=== PATIENT | male | born 1930 | race Caucasian/White ===

== ENCOUNTER 2018-11-11 18:48 | Inpatient (IN) ==
[2018-11-11] MEDS ORDERED: Ipratropium/Albuterol Neb 3 ML ONE (18:56)
[2018-11-11] MEDS ORDERED: 0.9 % Sodium Chloride 1,000 ML ONE ×4 (19:00→21:44)
[2018-11-11] MEDS ORDERED: Dexamethasone 4 MG/ML VIAL IVP ONE (19:13)
[2018-11-11] MEDS ORDERED: Piperacillin/Tazobactam 3.375 GM in Water for inj. (sterile) 20 ML 20 ML IVP ONE (19:13)
[2018-11-11] MEDS ORDERED: 0.9 % Sodium Chloride 1,000 ML IVC ONE ×2 (19:13)
[2018-11-11] MEDS ORDERED: *HR* Rocuronium Bromide 50 MG/5 ML VIAL IVP ONE (19:15)
[2018-11-11] MEDS ORDERED: *HR* Etomidate 20 MG/10 ML AMPUL IVP ONE (19:16)
[2018-11-11] MEDS ORDERED: Isovue-370 500 ML BOTTLE IVP ONE ×2 (19:17→22:07)
[2018-11-11 19:20] LABS: ABG Base Excess -2 mEq/L (-2 to 3); ABG HCO3 23 mEq/L (21-27); ABG Oxygen Saturation 94 % (95-98); ABG PCO2 37 mmHg (35-45); ABG PO2 69 mmHg (85-104); ABG TCO2 24 mEq/L (20-26)
[2018-11-11 19:20] LABS: Basophils % 0.2 %; Eosinophils % 0.7 %; Hematocrit 38.4 % (37.5-50.1); Immature Granulocytes % 0.5 % (0-4); Lymphocytes # 0.9 K/mcL (0.6-4.6); Mean Corpuscular HGB Conc 31.3 g/dL (31.6-35.5); Mean Corpuscular Hemoglobin 31.2 pg (28.0-33.3); Mean Corpuscular Volume 99.7 fL (83.0-100.0); Mean Platelet Volume 9.9 fL (9.4-12.4); Monocytes % 0.7 %; Neutrophils # 3.3 K/mcL (1.6-8.9); Platelet Count 223 K/mcL (140-400); Red Blood Count 3.85 M/mcL (4.19-5.50); Red Cell Distribution Width 15.5 % (11.5-14.5); Segmented Neutrophils % 76.9 %
[2018-11-11] MEDS ORDERED: Ipratropium/Albuterol Neb 3 ML IH ONE (19:21)
[2018-11-11 19:22] LABS: INR 1.1; Prothrombin Time 12.3 Seconds (9.4-12.1)
--- NOTE | 2018-11-11 19:23 | Emergency Department Note ---
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, Bladder outlet obstruction Sepsis Qualifiers: Sepsis type: sepsis due to unspecified organism Qualified Code(s): A41.9 - Sepsis, unspecified organism UTI (urinary tract infection) Qualifiers: Urinary tract infection type: site unspecified Hematuria presence: with hematuria Qualified Code(s): N39.0 - Urinary tract infection, site not specified Congestive heart failure Qualifiers: Heart failure type: unspecified Heart failure chronicity: unspecified Qualified Code(s): I50.9 - Heart failure, unspecified Disposition: Admitted As Inpatient Condition: Critical Time of Disposition: 15:02 SOB HPI - General Chief Complaint: ED Shortness of Breath/Dyspnea Stated Complaint: TERRIE Time Seen by Provider: 11/11/18 19:12 Source: patient, family, EMS Mode of arrival: EMS Limitations: altered mental status Nursing Notes Reviewed: Yes Vital Signs Reviewed: Yes - History of Present Illness 88-year-old male presenting from [facility] for severe shortness of breath. Upon presentation patient is found to be in significant respiratory distress, he is panicking with significant effort in his work of breathing, accessory muscle use, he is speaking in 1-2 word sentences and stating "help me." Patient is tachycardic into the 140s. When asked if the patient is currently experiencing chest pains he states "no." Paperwork sent from [facility] notes patient is a DNR Comfort Care arrest. There is no specification regarding patient's wishes for intubation. Resident physician explained to the patient that he may need a breathing tube to help with his respiratory efforts, patient responded with "yeah." When asked by the resident physician to confirm that the patient would condone intubation at this time the patient responds with unintelligible words. Continued medical management in trauma bay by attending physician Dr. Barnard was performed while resident physician attempted to make contact with patient's family. Resident physician contacted patient's daughter by phone who had at this time arrived in the ED waiting room and patient's daughter was informed [id number] of the risks and benefits of intubation at this time including continued medical decompensation of the patient's respiratory status versus the possibility of requiring permanent ventilatory support in order to sustain life. Patient's daughter states that the patient does not wish to have cardiopulmonary resuscitation performed stating "he does not want you to bust up his chest." Patient's daughter states that breathing tube at this time with mechanical ventilation is acceptable and would be in her father's wishes in order to stabilize her father while etiology of his current condition is evaluated. Pt Subjective Complaint: shortness of breath Context: recent illness, trauma/injury Severity: severe Consistency/Duration: gradually worsening Improves with: nothing Worsens with: nothing Known history of: COPD, other (Prostate cancer, recurrent UTI) Treatment prior to arrival: oxygen, bronchodilator Cough present: No - Related Data Home Medications Medication Instructions Recorded Confirmed Divalproex Sodium [Depakote] 250 mg PO BID 11/11/18 11/11/18 Escitalopram [Lexapro] 20 mg PO DAILY 11/11/18 11/11/18 Famotidine [Heartburn Prevention] 20 mg PO HS 11/11/18 11/11/18 Ipratropium/Albuterol Neb [Duoneb] 3 ml IH BID 11/11/18 11/11/18 Ipratropium/Albuterol Neb [Duoneb] 3 ml IH TID PRN 11/11/18 11/11/18 Melatonin 5 mg PO HS 11/11/18 11/11/18 Multivitamin [One Daily 1 each PO DAILY 11/11/18 11/11/18 Multivitamin] Nitrofurantoin [Macrodantin] 50 mg PO DAILY 11/11/18 11/11/18 OLANZapine [Zyprexa] 10 mg PO HS 11/11/18 11/11/18 Ropinirole HCl [Requip] 2 mg PO HS 11/11/18 11/11/18 Tramadol HCl [Ultram] 50 mg PO TID 11/11/18 11/11/18 Trazodone HCl 100 mg PO HS 11/11/18 11/11/18 Allergies Allergy/AdvReac Type Severity Reaction Status Date / Time No Known Allergies Allergy Verified 11/11/18 19:40 Review of Systems: As Per HPI Limitations: ROS unobtainable due to patients medical condition Past Medical History - Past Medical History Source: old records reviewed, obtained from family Medical history: Reports: COPD, dementia, other (Prostate cancer) - Social History Smoking Status: Former smoker Physical Exam Constitutional: Patient is in severe respiratory distress, he is panicking, he is speaking in 1-2 word sentences. Patient's speech is becoming unintelligible. Neuro: no overt focal neurological deficits Head: Swelling and bruising noted to the left parietal area of the patient's skull as well as to bilateral upper extremities. Eyes: Pupils equal, no scleral icterus, Neck: Trachea midline without deviation. Anterior neck is supple without swelling. *Chest: Symmetric chest wall rise *Heart: Rate is tachycardic, heart sounds are difficult to auscultate given the degree of wheezing and rhonchi throughout lung triana. No significant murmurs are detected. *Lungs: Diffuse wheezes and rhonchi throughout bilateral lung triana. Patient with accessory muscle use and prolonged expiratory phase. Patient is severely conversationally dyspneic speaking 1-2 word sentences. Abdomen: Abdomen is flat, soft to palpation, Non-distended, non-rigid, no organomegaly, no ascites appreciated. No pulsatile mass, no tenderness or guarding to palpation in all four quadrants, no rebound Integumentary: Patient appears pale but is nondiaphoretic, noncyanotic. - General Limitations: altered mental status, other (Severe respiratory distress) General appearance: lethargic, in distress Course Course Narrative: Concern for severe respiratory distress. Patient with DNR CC arrest advanced directive. Upon presentation patient appears to be asking for help and initially seems to condone intubation for treatment of his respiratory status. Patient unable to confirm these wishes. Patient's daughter contacted and states the father would desire intubation for prevention of decompensation of his respiratory status will etiology of his condition is evaluated. Patient's daughter states that her father would NOT wish to have cardiopulmonary resuscitation in the event cardiac arrest. Intubation will be performed in trauma bay with mechanical ventilation, DuoNeb therapy Full laboratory analysis including urinalysis, ABG, chest x-ray Head CT Empiric antibiotics, IV fluid - Reevaluation(s) Reevaluation #1: Speaking further with patient's daughter, she states the patient encountered a mechanical fall at his extended care facility on Monday of last week. Extended care facility did not report any loss of consciousness, nausea vomiting, difficulties with ambulation, or any further complications resulting from this event. Patient did not receive medical evaluation after the fall. Vital Signs O2 Sat by Pulse Oximetry 84 11/11/18 18:50 Temperature 97.1 F L 11/12/18 12:25 Pulse Rate 96 11/12/18 14:00 Respiratory Rate 20 11/12/18 14:00 Blood Pressure 159/93 11/12/18 14:00 O2 Sat by Pulse Oximetry 100 11/12/18 14:00 Oxygen Delivery Oxygen Delivery Ventilator Procedures - Intubation Time out performed: No sedative: Etomidate Mg Given: 20 paralytic: Rocuronium Mg Given: 60 Laryngoscope: fiber optic video scope Assist Device Used: fiber optic device ET Tube Size: 7 ET Tube Uncuffed: No Tube Secured Depth (cm): 25 Tube Secured Location: teeth Tube Placement Confirmation: visualized tube passing through cords, equal breath sounds bilaterally, no breath sounds over epigastrium, confirmation by capnometry Patient Tolerated Procedure: well, no complications Intubation Complications: none Shortness of Breath/Dyspnea - MDM Narrative Medical decision making narrative: 1. Patient's initial lactate elevated 8.2 Patient believed to be uroseptic with positive urinalysis for infection Bedside ultrasound shows distended bladder with approximately [address] Galvin from urology contacted for suprapubic catheterization as urethral catheter unable to return significant amount of fluid 2. Patient undergoes CTA chest due to potential concerns for pulmonary embolism. 3. Patient's anatomy is deranged from prostate cancer Urologist states that upon initial attempt of suprapubic catheterization air initially aspirated Suprapubic catheter repositioned with positive urine flow Concern over bowel perforation by 14-gauge needle suprapubic catheterization Patient is on empiric antibiotics with azithromycin, vancomycin and Zosyn We will perform CT scan of the abdomen and pelvis with IV contrast at this time for further evaluation. 4. Patient noted to hospitalist medicine service with ICU admission for further management of patient's condition. Dr. Cris gómez. 5. CTA of the patient's chest reveals incidental findings of multiple acute thoracic vertebral fractures. Hospitalist contacted and informed of these findings. Hospitalist states that he has been made aware and is investigating further. - Lab Data Lab results reviewed: Yes I reviewed the patient's lab results. Result diagrams: 11/12/18 03:25 11/12/18 03:25 Lab Results 11/11/18 11/11/18 11/11/18 Range/Units 18:58 18:58 18:58 WBC 4.3 (4.3-11.1) K/mcL RBC 3.85 L (4.19-5.50) M/mcL Hgb 12.0 L (12.9-16.9) g/dL Hct 38.4 (37.5-50.1) % MCV 99.7 (83.0-100.0) fL MCH 31.2 (28.0-33.3) pg MCHC 31.3 L (31.6-35.5) g/dL RDW 15.5 H (11.5-14.5) % Plt Count 223 (140-400) K/mcL MPV 9.9 (9.4-12.4) fL Immature Gran % 0.5 (0-4) % Seg Neutrophils % 76.9 % Lymphocytes % 21.0 % Monocytes % 0.7 % Eosinophils % 0.7 % Basophils % 0.2 % Neutrophils # 3.3 (1.6-8.9) K/mcL Lymphocytes # 0.9 (0.6-4.6) K/mcL Monocytes # 0.0 (0.0-1.3) K/mcL Eosinophils # 0.0 (0.0-0.6) K/mcL Basophils # 0.0 (0.0-0.2) K/mcL PT 12.3 H (9.4-12.1) Seconds INR 1.1 APTT 25.7 L (26.0-36.0) Seconds ABG pH (7.32-7.45) pH Units ABG pCO2 (35-45) mmHg ABG pO2 (85-104) mmHg ABG HCO3 (21-27) mEq/L ABG Total CO2 (20-26) mEq/L ABG O2 Saturation (95-98) % ABG Base Excess (-2 to 3) mEq/L O2 Delivery Device Inspired O2 (1-15=lpm [id number]=%) Sodium 138 (136-145) mEq/L Potassium 5.0 (3.5-5.1) mEq/L Chloride 97 L (98-107) mEq/L Carbon Dioxide 23 (23-29) mEq/L BUN 19 (8-23) mg/dL Creatinine 1.05 (0.70-1.30) mg/dL Est GFR ( Amer) > 60 (> 60) Est GFR (Non-Af Amer) > 60 (> 60) BUN/Creatinine Ratio 18 (6-26) Glucose 125 H (70-105) mg/dL Calculated Osmolality 290 (280-300) Lactic Acid (0.5-2.2) mmol/L Calcium 9.4 (8.6-10.3) mg/dL Phosphorus 3.8 (2.7-4.5) mg/dL Magnesium 1.8 (1.6-2.6) mg/dL Total Bilirubin 0.9 (0.3-1.0) mg/dL Direct Bilirubin 0.2 (0.0-0.2) mg/dL Indirect Bilirubin 0.7 (0.0-1.2) mg/dL AST 16 (13-39) Units/L ALT 9 (7-52) Units/L Alkaline Phosphatase 77 (34-104) Units/L Troponin I 0.03 (< 0.04) ng/mL Serum Total Protein 7.2 (6.4-8.9) g/dL Albumin 3.9 (3.5-5.7) g/dL Globulin 3.3 (2.4-3.5) g/dL Albumin/Globulin Ratio 1.2 (1.1-2.2) Urine Color (Yellow) Urine Clarity (Clear) Urine pH (5.0-8.0) pH Units Ur Specific [place] (1.010-1.025) Urine Protein (Neg-Trace) mg/dL Urine Glucose (UA) (Normal) mg/dL Urine Ketones (Negative) mg/dL Urine Blood (Negative) Urine Nitrite (Negative) Urine Bilirubin (Negative) Urine Urobilinogen (Normal) mg/dL Ur Leukocyte Esterase (Negative) Urine Microscopic RBC (0-3) per hpf Urine Microscopic WBC (0-3) per hpf Ur Squamous Epith Cells (None-Few) per lpf Urine Bacteria (None-Few) per hpf Hyaline Casts (None-Few) per lpf Ur Culture Indicated? (NO) A. baumannii (PCR) (Not Detect) Kelsea albicans (PCR) (Not Detect) C. glabrata (PCR) (Not Detect) C. krusei (PCR) (Not Detect) C. parapsilosis (PCR) (Not Detect) C. tropicalis (PCR) (Not Detect) Enterobacteriac sp PCR (Not Detect) E. cloacae complex PCR (Not Detect) Enterococcus sp PCR (Not Detect) E. coli (PCR) (Not Detect) H. influenzae (PCR) (Not Detect) Klebsiella oxytoca PCR (Not Detect) Klebsiella pneumoniae (Not Detect) List. monocytogenes PCR (Not Detect) N. meningitidis (PCR) (Not Detect) Proteus species (PCR) (Not Detect) Serratia marcescens PCR (Not Detect) Staphylococcus sp PCR (Not Detect) Staph aureus (PCR) (Not Detect) mecA-Methicil Res Gene (Not Detect) Streptococcus sp PCR (Not Detect) Group A Strep DNA (Not Detect) Group B Strep (PCR) (Not Detect) Strep pneumoniae (PCR) (Not Detect) P. aeruginosa (PCR) (Not Detect) Zeny/B-Vanco Res Genes (Not Detect) KPC (blaKPC) Detect PCR (Not Detect) 11/11/18 11/11/18 11/11/18 Range/Units 18:58 19:05 19:20 WBC (4.3-11.1) K/mcL RBC (4.19-5.50) M/mcL Hgb (12.9-16.9) g/dL Hct (37.5-50.1) % MCV (83.0-100.0) fL MCH (28.0-33.3) pg MCHC (31.6-35.5) g/dL RDW (11.5-14.5) % Plt Count (140-400) K/mcL MPV (9.4-12.4) fL Immature Gran % (0-4) % Seg Neutrophils % % Lymphocytes % % Monocytes % % Eosinophils % % Basophils % % Neutrophils # (1.6-8.9) K/mcL Lymphocytes # (0.6-4.6) K/mcL Monocytes # (0.0-1.3) K/mcL Eosinophils # (0.0-0.6) K/mcL Basophils # (0.0-0.2) K/mcL PT (9.4-12.1) Seconds INR APTT (26.0-36.0) Seconds ABG pH 7.40 (7.32-7.45) pH Units ABG pCO2 37 (35-45) mmHg ABG pO2 69 L (85-104) mmHg ABG HCO3 23 (21-27) mEq/L ABG Total CO2 24 (20-26) mEq/L ABG O2 Saturation 94 L (95-98) % ABG Base Excess -2 (-2 to 3) mEq/L O2 Delivery Device AeroMask Inspired O2 10.0 (1-15=lpm [id number]=%) Sodium (136-145) mEq/L Potassium (3.5-5.1) mEq/L Chloride (98-107) mEq/L Carbon Dioxide (23-29) mEq/L BUN (8-23) mg/dL Creatinine (0.70-1.30) mg/dL Est GFR ( Amer) (> 60) Est GFR (Non-Af Amer) (> 60) BUN/Creatinine Ratio (6-26) Glucose (70-105) mg/dL Calculated Osmolality (280-300) Lactic Acid 8.2 H* (0.5-2.2) mmol/L Calcium (8.6-10.3) mg/dL Phosphorus (2.7-4.5) mg/dL Magnesium (1.6-2.6) mg/dL Total Bilirubin (0.3-1.0) mg/dL Direct Bilirubin (0.0-0.2) mg/dL Indirect Bilirubin (0.0-1.2) mg/dL AST (13-39) Units/L ALT (7-52) Units/L Alkaline Phosphatase (34-104) Units/L Troponin I (< 0.04) ng/mL Serum Total Protein (6.4-8.9) g/dL Albumin (3.5-5.7) g/dL Globulin (2.4-3.5) g/dL Albumin/Globulin Ratio (1.1-2.2) Urine Color (Yellow) Urine Clarity (Clear) Urine pH (5.0-8.0) pH Units Ur Specific [place] (1.010-1.025) Urine Protein (Neg-Trace) mg/dL Urine Glucose (UA) (Normal) mg/dL Urine Ketones (Negative) mg/dL Urine Blood (Negative) Urine Nitrite (Negative) Urine Bilirubin (Negative) Urine Urobilinogen (Normal) mg/dL Ur Leukocyte Esterase (Negative) Urine Microscopic RBC (0-3) per hpf Urine Microscopic WBC (0-3) per hpf Ur Squamous Epith Cells (None-Few) per lpf Urine Bacteria (None-Few) per hpf Hyaline Casts (None-Few) per lpf Ur Culture Indicated? (NO) A. baumannii (PCR) Not Detected (Not Detect) Kelsea albicans (PCR) Not Detected (Not Detect) C. glabrata (PCR) Not Detected (Not Detect) C. krusei (PCR) Not Detected (Not Detect) C. parapsilosis (PCR) Not Detected (Not Detect) C. tropicalis (PCR) Not Detected (Not Detect) Enterobacteriac sp PCR DETECTED A (Not Detect) E. cloacae complex PCR Not Detected (Not Detect) Enterococcus sp PCR Not Detected (Not Detect) E. coli (PCR) DETECTED A (Not Detect) H. influenzae (PCR) Not Detected (Not Detect) Klebsiella oxytoca PCR Not Detected (Not Detect) Klebsiella pneumoniae Not Detected (Not Detect) List. monocytogenes PCR Not Detected (Not Detect) N. meningitidis (PCR) Not Detected (Not Detect) Proteus species (PCR) Not Detected (Not Detect) Serratia marcescens PCR Not Detected (Not Detect) Staphylococcus sp PCR Not Detected (Not Detect) Staph aureus (PCR) Not Detected (Not Detect) mecA-Methicil Res Gene N/A (Not Detect) Streptococcus sp PCR Not Detected (Not Detect) Group A Strep DNA Not Detected (Not Detect) Group B Strep (PCR) Not Detected (Not Detect) Strep pneumoniae (PCR) Not Detected (Not Detect) P. aeruginosa (PCR) Not Detected (Not Detect) Zeny/B-Vanco Res Genes N/A (Not Detect) KPC (blaKPC) Detect PCR Not Detected (Not Detect) 11/11/18 11/11/18 Range/Units 20:52 23:00 WBC (4.3-11.1) K/mcL RBC (4.19-5.50) M/mcL Hgb (12.9-16.9) g/dL Hct (37.5-50.1) % MCV (83.0-100.0) fL MCH (28.0-33.3) pg MCHC (31.6-35.5) g/dL RDW (11.5-14.5) % Plt Count (140-400) K/mcL MPV (9.4-12.4) fL Immature Gran % (0-4) % Seg Neutrophils % % Lymphocytes % % Monocytes % % Eosinophils % % Basophils % % Neutrophils # (1.6-8.9) K/mcL Lymphocytes # (0.6-4.6) K/mcL Monocytes # (0.0-1.3) K/mcL Eosinophils # (0.0-0.6) K/mcL Basophils # (0.0-0.2) K/mcL PT (9.4-12.1) Seconds INR APTT (26.0-36.0) Seconds ABG pH (7.32-7.45) pH Units ABG pCO2 (35-45) mmHg ABG pO2 (85-104) mmHg ABG HCO3 (21-27) mEq/L ABG Total CO2 (20-26) mEq/L ABG O2 Saturation (95-98) % ABG Base Excess (-2 to 3) mEq/L O2 Delivery Device Inspired O2 (1-15=lpm [id number]=%) Sodium (136-145) mEq/L Potassium (3.5-5.1) mEq/L Chloride (98-107) mEq/L Carbon Dioxide (23-29) mEq/L BUN (8-23) mg/dL Creatinine (0.70-1.30) mg/dL Est GFR ( Amer) (> 60) Est GFR (Non-Af Amer) (> 60) BUN/Creatinine Ratio (6-26) Glucose (70-105) mg/dL Calculated Osmolality (280-300) Lactic Acid 1.2 (0.5-2.2) mmol/L Calcium (8.6-10.3) mg/dL Phosphorus (2.7-4.5) mg/dL Magnesium (1.6-2.6) mg/dL Total Bilirubin (0.3-1.0) mg/dL Direct Bilirubin (0.0-0.2) mg/dL Indirect Bilirubin (0.0-1.2) mg/dL AST (13-39) Units/L ALT (7-52) Units/L Alkaline Phosphatase (34-104) Units/L Troponin I (< 0.04) ng/mL Serum Total Protein (6.4-8.9) g/dL Albumin (3.5-5.7) g/dL Globulin (2.4-3.5) g/dL Albumin/Globulin Ratio (1.1-2.2) Urine Color Yellow (Yellow) Urine Clarity Cloudy A (Clear) Urine pH 6.5 (5.0-8.0) pH Units Ur Specific [place] 1.012 (1.010-1.025) Urine Protein 30 H (Neg-Trace) mg/dL Urine Glucose (UA) Normal (Normal) mg/dL Urine Ketones Negative (Negative) mg/dL Urine Blood Large H (Negative) Urine Nitrite Positive A (Negative) Urine Bilirubin Negative (Negative) Urine Urobilinogen Normal (Normal) mg/dL Ur Leukocyte Esterase Large H (Negative) Urine Microscopic RBC TNTC H (0-3) per hpf Urine Microscopic WBC TNTC H (0-3) per hpf Ur Squamous Epith Cells None Seen (None-Few) per lpf Urine Bacteria Many H (None-Few) per hpf Hyaline Casts None Seen (None-Few) per lpf Ur Culture Indicated? YES A (NO) A. baumannii (PCR) (Not Detect) Kelsea albicans (PCR) (Not Detect) C. glabrata (PCR) (Not Detect) C. krusei (PCR) (Not Detect) C. parapsilosis (PCR) (Not Detect) C. tropicalis (PCR) (Not Detect) Enterobacteriac sp PCR (Not Detect) E. cloacae complex PCR (Not Detect) Enterococcus sp PCR (Not Detect) E. coli (PCR) (Not Detect) H. influenzae (PCR) (Not Detect) Klebsiella oxytoca PCR (Not Detect) Klebsiella pneumoniae (Not Detect) List. monocytogenes PCR (Not Detect) N. meningitidis (PCR) (Not Detect) Proteus species (PCR) (Not Detect) Serratia marcescens PCR (Not Detect) Staphylococcus sp PCR (Not Detect) Staph aureus (PCR) (Not Detect) mecA-Methicil Res Gene (Not Detect) Streptococcus sp PCR (Not Detect) Group A Strep DNA (Not Detect) Group B Strep (PCR) (Not Detect) Strep pneumoniae (PCR) (Not Detect) P. aeruginosa (PCR) (Not Detect) Zeny/B-Vanco Res Genes (Not Detect) KPC (blaKPC) Detect PCR (Not Detect) - Radiology Data Radiology results reviewed: Yes I reviewed the patient's radiology results. Chest X-Ray 11/11/18 19:13 IMPRESSION: 1. Endotracheal tube 4 cm above the harpal 2. Bronchitis with multifocal atelectasis. Small irregular opacities may indicate bronchiolitis/broncho pneumonia D/ / Ab Cason MD / Ab Cason MD Interpreting Provider: Ab Cason MD Head CT 11/11/18 19:52 IMPRESSION: No acute intracranial abnormality. Chronic microvascular ischemic changes and global cerebral atrophy. D/ / Kal Lira MD / Kal Lira MD Interpreting Provider: Kal Lira MD Chest CTA 11/11/18 22:07 IMPRESSION: 1. No evidence of a pulmonary embolism. 2. Suspected acute fractures involving the T4, T5, T7, T8, T10, and T11 vertebral bodies with associated areas of paraspinal hematoma. 3. Dense consolidations are noted in the lower lobes bilaterally with associated small pleural effusions. 4. Cholelithiasis. 5. Hiatal hernia. The orogastric tube terminates in the hiatal hernia, above the diaphragm. 6. Centrilobular and paraseptal emphysema with findings suggestive of pulmonary edema. 7. Marked atherosclerotic disease. D/ / Eldon Rodriguez MD / Eldon Rodriguez MD Interpreting Provider: Eldon Rodriguez MD Abdomen/Pelvis CT 11/11/18 22:59 IMPRESSION: 1. No pneumoperitoneum. 2. Probable fecal impaction. 3. Cholelithiasis. 4. Diverticulosis without scan evidence for diverticulitis 5. High attenuation in the bladder likely represents hemorrhage. A suprapubic catheter is in place. D/ / Prashant José MD / Prashant José MD Interpreting Provider: Prashant José MD - EKG Data EKG attestation: Yes I reviewed and interpreted this EKG. EKG results narrative: Patient EKG shows a sinus tachycardia with left axis deviation at a rate of 144 bpm. DE interval of 135 ms, QRS duration of 84 ms, QT/QTc interval 279/45 ms respectively. There are no significant ST segment elevations, depressions, pathologic Q's, abnormal T-wave inversions, no signs of acute ischemic change. This time there is no prior EKG available for comparison. Attestation Statement - Attestation Attestation: I have seen this patient with the resident physician, I have personally evaluated this patient. I had reviewed the chart and document dictation by the resident physician and aM in agreement with the information documented by the resident physician. Please see documentation by the resident physician for complete chart including past medical history, family medical history, review of systems, current history and physical and laboratory and imaging studies. I was present for all procedures, provided direct supervision for all procedures, was present for the entirety of all procedures and provided direct guidance during the procedures. Please see documentation by the resident physician for any procedures performed. I have reviewed all interpretations of EKGs, and reviewed all EKGs performed on patient's as well. I have also reviewed reports of imaging as provided by radiology.
[2018-11-11 19:25] LABS: Activated Partial Thrombo Time 25.7 Seconds (26.0-36.0)
[2018-11-11] MEDS ORDERED: Piperacillin/Tazobactam 3.375 GM in 0.9 % Sodium Chloride Mini Bag 100 ML IVPB ONE (19:27)
[2018-11-11] MEDS ORDERED: Dexamethasone 10 MG/ML VIAL IVP ONE (19:30)
[2018-11-11] MEDS: FentaNYL (PF) 1,000 MCG in 0.9 % Sodium Chloride 80 ML IVC SCH (19:34)
[2018-11-11] MEDS ORDERED: Azithromycin 500 MG in D5% in Water 250 ML IVPB ONE (19:42)
[2018-11-11 19:46] LABS: Alanine Aminotransferase 9 Units/L (7-52); Albumin 3.9 g/dL (3.5-5.7); Albumin/Globulin Ratio 1.2 (1.1-2.2); Alkaline Phosphatase 77 Units/L (34-104); Aspartate Amino Transferase 16 Units/L (13-39); BUN/Creatinine Ratio 18 (6-26); Bilirubin,Direct 0.2 mg/dL (0.0-0.2); Bilirubin,Indirect 0.7 mg/dL (0.0-1.2); Bilirubin,Total 0.9 mg/dL (0.3-1.0); Blood Urea Nitrogen 19 mg/dL (8-23); Calcium 9.4 mg/dL (8.6-10.3); Carbon Dioxide 23 mEq/L (23-29); Chloride 97 mEq/L (98-107); Globulin 3.3 g/dL (2.4-3.5); Glucose 125 mg/dL (70-105); Magnesium 1.8 mg/dL (1.6-2.6); Osmolality,Calculated 290 (280-300); Phosphorous 3.8 mg/dL (2.7-4.5); Sodium 138 mEq/L (136-145); Total Protein 7.2 g/dL (6.4-8.9); eGFR For Non-African Americans > 60 (> 60)
[2018-11-11 19:47] LABS: Troponin I 0.03 ng/mL (< 0.04)
[2018-11-11 21:05] LABS: Bilirubin,Urine Negative (Negative); Blood,Urine Large (Negative); Clarity,Urine Cloudy (Clear); Color,Urine Yellow (Yellow); Glucose,Urine (UA) Normal (Normal); Ketones,Urine Negative (Negative); Leukocyte Esterase,Urine Large (Negative); Nitrite,Urine Positive (Negative); PH,Urine 6.5 pH Units (5.0-8.0); Protein,Urine 30 mg/dL (Neg-Trace); Specific Gravity,Urine 1.012 (1.010-1.025); Urobilinogen,Urine Normal (Normal)
[2018-11-11 21:11] LABS: Bacteria,Urine Many per hpf (None-Few); Hyaline Casts,Urine None Seen per lpf (None-Few); RBC,Urine TNTC per hpf (0-3); Squamous Epithelial Cell,Urine None Seen per lpf (None-Few); WBC,Urine TNTC per hpf (0-3)
[2018-11-11] MEDS ORDERED: 0.9 % Sodium Chloride 2,000 ML ONE (21:11)
--- NOTE | 2018-11-11 22:26 | Emergency Department Note ---
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, Bladder outlet obstruction Disposition: Admitted As Inpatient Condition: Critical Forms: ED Satisfaction Letter Time of Disposition: 22:00 General Adult HPI - General Chief complaint: ED Shortness of Breath/Dyspnea Stated complaint: TERRIE Time Seen by Provider: 11/11/18 19:12 - History of Present Illness Pain Scale: 0 - Related Data Home Medications Medication Instructions Recorded Confirmed Divalproex Sodium [Depakote] 250 mg PO BID 11/11/18 11/11/18 Escitalopram [Lexapro] 20 mg PO DAILY 11/11/18 11/11/18 Famotidine [Heartburn Prevention] 20 mg PO HS 11/11/18 11/11/18 Ipratropium/Albuterol Neb [Duoneb] 3 ml IH BID 11/11/18 11/11/18 Ipratropium/Albuterol Neb [Duoneb] 3 ml IH TID PRN 11/11/18 11/11/18 Melatonin 5 mg PO HS 11/11/18 11/11/18 Multivitamin [One Daily 1 each PO DAILY 11/11/18 11/11/18 Multivitamin] Nitrofurantoin [Macrodantin] 50 mg PO DAILY 11/11/18 11/11/18 OLANZapine [Zyprexa] 10 mg PO HS 11/11/18 11/11/18 Ropinirole HCl [Requip] 2 mg PO HS 11/11/18 11/11/18 Tramadol HCl [Ultram] 50 mg PO TID 11/11/18 11/11/18 Trazodone HCl 100 mg PO HS 11/11/18 11/11/18 Allergies Allergy/AdvReac Type Severity Reaction Status Date / Time No Known Allergies Allergy Verified 11/11/18 19:40 Past Medical History - Past Medical History Medical history: Reports: COPD - Social History Smoking Status: Former smoker Physical Exam - General General appearance: lethargic, in distress Course Vital Signs O2 Sat by Pulse Oximetry 84 11/11/18 18:50 Temperature 100.1 F H 11/11/18 18:51 Pulse Rate 143 11/11/18 19:06 Respiratory Rate 16 11/11/18 20:10 Blood Pressure 138/87 11/11/18 19:06 O2 Sat by Pulse Oximetry 100 11/11/18 20:10 Oxygen Delivery Oxygen Delivery Non Rebreather Mask Medical Decision Making - Lab Data Result diagrams: 11/11/18 18:58 11/11/18 18:58 Lab Results 11/11/18 11/11/18 11/11/18 Range/Units 18:58 18:58 18:58 WBC 4.3 (4.3-11.1) K/mcL RBC 3.85 L (4.19-5.50) M/mcL Hgb 12.0 L (12.9-16.9) g/dL Hct 38.4 (37.5-50.1) % MCV 99.7 (83.0-100.0) fL MCH 31.2 (28.0-33.3) pg MCHC 31.3 L (31.6-35.5) g/dL RDW 15.5 H (11.5-14.5) % Plt Count 223 (140-400) K/mcL MPV 9.9 (9.4-12.4) fL Immature Gran % 0.5 (0-4) % Seg Neutrophils % 76.9 % Lymphocytes % 21.0 % Monocytes % 0.7 % Eosinophils % 0.7 % Basophils % 0.2 % Neutrophils # 3.3 (1.6-8.9) K/mcL Lymphocytes # 0.9 (0.6-4.6) K/mcL Monocytes # 0.0 (0.0-1.3) K/mcL Eosinophils # 0.0 (0.0-0.6) K/mcL Basophils # 0.0 (0.0-0.2) K/mcL PT 12.3 H (9.4-12.1) Seconds INR 1.1 APTT 25.7 L (26.0-36.0) Seconds ABG pH (7.32-7.45) pH Units ABG pCO2 (35-45) mmHg ABG pO2 (85-104) mmHg ABG HCO3 (21-27) mEq/L ABG Total CO2 (20-26) mEq/L ABG O2 Saturation (95-98) % ABG Base Excess (-2 to 3) mEq/L O2 Delivery Device Inspired O2 (1-15=lpm [id number]=%) Sodium 138 (136-145) mEq/L Potassium 5.0 (3.5-5.1) mEq/L Chloride 97 L (98-107) mEq/L Carbon Dioxide 23 (23-29) mEq/L BUN 19 (8-23) mg/dL Creatinine 1.05 (0.70-1.30) mg/dL Est GFR ( Amer) > 60 (> 60) Est GFR (Non-Af Amer) > 60 (> 60) BUN/Creatinine Ratio 18 (6-26) Glucose 125 H (70-105) mg/dL Calculated Osmolality 290 (280-300) Lactic Acid (0.5-2.2) mmol/L Calcium 9.4 (8.6-10.3) mg/dL Phosphorus 3.8 (2.7-4.5) mg/dL Magnesium 1.8 (1.6-2.6) mg/dL Total Bilirubin 0.9 (0.3-1.0) mg/dL Direct Bilirubin 0.2 (0.0-0.2) mg/dL Indirect Bilirubin 0.7 (0.0-1.2) mg/dL AST 16 (13-39) Units/L ALT 9 (7-52) Units/L Alkaline Phosphatase 77 (34-104) Units/L Troponin I 0.03 (< 0.04) ng/mL Serum Total Protein 7.2 (6.4-8.9) g/dL Albumin 3.9 (3.5-5.7) g/dL Globulin 3.3 (2.4-3.5) g/dL Albumin/Globulin Ratio 1.2 (1.1-2.2) Urine Color (Yellow) Urine Clarity (Clear) Urine pH (5.0-8.0) pH Units Ur Specific Star (1.010-1.025) Urine Protein (Neg-Trace) mg/dL Urine Glucose (UA) (Normal) mg/dL Urine Ketones (Negative) mg/dL Urine Blood (Negative) Urine Nitrite (Negative) Urine Bilirubin (Negative) Urine Urobilinogen (Normal) mg/dL Ur Leukocyte Esterase (Negative) Urine Microscopic RBC (0-3) per hpf Urine Microscopic WBC (0-3) per hpf Ur Squamous Epith Cells (None-Few) per lpf Urine Bacteria (None-Few) per hpf Hyaline Casts (None-Few) per lpf Ur Culture Indicated? (NO) 11/11/18 11/11/18 11/11/18 Range/Units 18:58 19:05 20:52 WBC (4.3-11.1) K/mcL RBC (4.19-5.50) M/mcL Hgb (12.9-16.9) g/dL Hct (37.5-50.1) % MCV (83.0-100.0) fL MCH (28.0-33.3) pg MCHC (31.6-35.5) g/dL RDW (11.5-14.5) % Plt Count (140-400) K/mcL MPV (9.4-12.4) fL Immature Gran % (0-4) % Seg Neutrophils % % Lymphocytes % % Monocytes % % Eosinophils % % Basophils % % Neutrophils # (1.6-8.9) K/mcL Lymphocytes # (0.6-4.6) K/mcL Monocytes # (0.0-1.3) K/mcL Eosinophils # (0.0-0.6) K/mcL Basophils # (0.0-0.2) K/mcL PT (9.4-12.1) Seconds INR APTT (26.0-36.0) Seconds ABG pH 7.40 (7.32-7.45) pH Units ABG pCO2 37 (35-45) mmHg ABG pO2 69 L (85-104) mmHg ABG HCO3 23 (21-27) mEq/L ABG Total CO2 24 (20-26) mEq/L ABG O2 Saturation 94 L (95-98) % ABG Base Excess -2 (-2 to 3) mEq/L O2 Delivery Device AeroMask Inspired O2 10.0 (1-15=lpm [id number]=%) Sodium (136-145) mEq/L Potassium (3.5-5.1) mEq/L Chloride (98-107) mEq/L Carbon Dioxide (23-29) mEq/L BUN (8-23) mg/dL Creatinine (0.70-1.30) mg/dL Est GFR ( Amer) (> 60) Est GFR (Non-Af Amer) (> 60) BUN/Creatinine Ratio (6-26) Glucose (70-105) mg/dL Calculated Osmolality (280-300) Lactic Acid 8.2 H* (0.5-2.2) mmol/L Calcium (8.6-10.3) mg/dL Phosphorus (2.7-4.5) mg/dL Magnesium (1.6-2.6) mg/dL Total Bilirubin (0.3-1.0) mg/dL Direct Bilirubin (0.0-0.2) mg/dL Indirect Bilirubin (0.0-1.2) mg/dL AST (13-39) Units/L ALT (7-52) Units/L Alkaline Phosphatase (34-104) Units/L Troponin I (< 0.04) ng/mL Serum Total Protein (6.4-8.9) g/dL Albumin (3.5-5.7) g/dL Globulin (2.4-3.5) g/dL Albumin/Globulin Ratio (1.1-2.2) Urine Color Yellow (Yellow) Urine Clarity Cloudy A (Clear) Urine pH 6.5 (5.0-8.0) pH Units Ur Specific Star 1.012 (1.010-1.025) Urine Protein 30 H (Neg-Trace) mg/dL Urine Glucose (UA) Normal (Normal) mg/dL Urine Ketones Negative (Negative) mg/dL Urine Blood Large H (Negative) Urine Nitrite Positive A (Negative) Urine Bilirubin Negative (Negative) Urine Urobilinogen Normal (Normal) mg/dL Ur Leukocyte Esterase Large H (Negative) Urine Microscopic RBC TNTC H (0-3) per hpf Urine Microscopic WBC TNTC H (0-3) per hpf Ur Squamous Epith Cells None Seen (None-Few) per lpf Urine Bacteria Many H (None-Few) per hpf Hyaline Casts None Seen (None-Few) per lpf Ur Culture Indicated? YES A (NO) Attestation Statement - Attestation Attestation: I have seen this patient with the resident physician, I have personally evaluated this patient. I had reviewed the chart and document dictation by the resident physician and aM in agreement with the information documented by the resident physician. Please see documentation by the resident physician for complete chart including past medical history, family medical history, review of systems, current history and physical and laboratory and imaging studies. I was present for all procedures, provided direct supervision for all procedures, was present for the entirety of all procedures and provided direct guidance during the procedures. Please see documentation by the resident physician for any procedures performed. I have reviewed all interpretations of EKGs, and reviewed all EKGs performed on patient's as well. I have also reviewed reports of imaging as provided by radiology. Patient was brought to the emergency department for altered mental status respiratory distress and concerns for UTI and potential sepsis from [facility] facility he has recurrent UTIs, upon arrival the paramedics he was hypo xic, they placed him on a nonrebreather and transported the patient. Upon arrival, patient is breathing 40-50 times a minute, with tachycardia low- grade fever, confusion and hypoxia off oxygen on a nonrebreather satting approximately 96% he is confused, and combative. Secondary to clinical concerns for altered mental status, sepsis, tachypnea, hypoxia, rapid sequence intubation was performed. Just prior to this ABG was obtained which showed no profound acidosis or CO2 retention. Sepsis order set was utilized. Please see documentation by the resident physician for procedure note of intubat ion, I was present for the entirety of this procedure no noted consultation with 1 attempt needed with easy visualization. Chest x-ray confirms placement of endotracheal tube, no focal areas of pneumonia on chest x-ray, multiple areas of potential scarring or small areas of infiltrate were noted consistent potentially with COPD. EKG was sinus rhythm sinus tachycardia heart rate of 144, nonspecific T-wave abnormality, no evidence of ST elevation or ST depression. A CBC basic metabolic profile were within acceptable limits lactic acid significant elevated at 8.2. Attempted to place a Munoz catheter but without success by 4 separate nurses, I attempted to place Munoz catheter myself with nurse assistance, utilizing a coude catheter as this patient has a history of prostate cancer, with this, there was unsuccessful placement, bladder was palpable to below the umbilicus, I was able to place gentle pressure on the bladder and obtain a urine specimen, manually in this sense, however bladder scan performed by myself with the ultrasound machine at the bedside reveals a minimum of 800 mL within the bladder. Secondary to urosepsis, with evidence of urinalysis showing significant UTI with positive nitrates positive esterase large white blood cells large bacteria, urology was contacted and has agreed to perform bedside superpubic catheterization, I spoke with Dr. Galvni. I consented the family for this, and they are agreeable but would like to talk to Dr. Galvin upon his arrival. Secondary to sepsis by vital signs, with UTI, lactic acidosis, aggressive IV hydration with 30 mL/kg was initiated, he was placed on sedation after intubation, he was initiated on antibiotics to cover both lungs and urine as he did have wheezing and a history of COPD and potential small areas of abnormality on chest x-ray, he was given Zosyn and vancomycin and Zithromax. Patient was also given breathing treatments and Decadron through the IV Patient was admitted to the hospitalist, for further management to the ICU. Total critical care time as provided by myself excluding any procedures performed, and management of urosepsis, bladder outlet obstruction, altered mental status, respiratory failure, COPD exacerbation, was 85 minutes.
[2018-11-11] MEDS ORDERED: Dexmedetomidine HCl 400 MCG/100 ML MLS IVC SCH (22:30)
--- NOTE | 2018-11-11 22:33 | Internal Med History&Physical ---
<Margie Mercedes N - Last Filed: 11/12/18 01:56> Date of Encounter: 11/12/18 Time of Encounter: 22:33 Internal Medicine - H&P: HPI Chief complaint: Shortness of breath Admitted From: Emergency Dept History of present illness: Mr. Sampson is a 88 year old male with a history of COPD, Alzheimer dementia with behavioral disturbance, atrial fibrillation, hypertension, hyperlipidemia, prostate cancer, osteoporosis, and frequent falls currently residing in a senior living facility. Patient presented to the ED via EMS for evaluation of shortness of breath. At the time of arrival, patient was noted to be in significant distress and severely tachypneic, with respiratory rate of 40-50 breaths per minute. Patient was also noted to be hypoxic with altered mental status, and was subsequently intubated while in the emergency department. Broad workup was initiated, and attempt was made for placement of [place] catheter. Per ED documentation, placement of [place] catheter was attempted by multiple providers; however, unsuccessful, even with use of a coude catheter. Urine was obtained via manual pressure over the bladder; urinalysis was suspicious for acute infection, with positive nitrates, large leukocyte esterase, and many bacteria noted. While in the ED, urology service was consulted for assistance with urinary drainage. Decision was made to proceed with placement of suprapubic catheter, which was completed successfully; however, there was initially concern for potential bowel perforation, as initial material obtained was feculant- appearing. CT of the abdomen/pelvis was obtained, which demonstrated no pneumoperitoneum, though probable fecal impaction, cholelithiasis, and diverticulosis were noted. Patient was also noted to have high attenuation the bladder, likely in store marketing representative of hemorrhage. Patient was administered broad- spectrum antimicrobial therapy with azithromycin, vancomycin, and Zosyn, as well as appropriate fluid resuscitation, after which he was admitted to the ICU for ongoing workup and management. Past Med Surg Social Fam HX - Past Medical History Source: other (SNF records) Medical history: atrial fibrillation, COPD, dementia, hyperlipidemia, hypertension, osteoporosis Psychiatric history: anxiety, depression - Social History Smoking Status: Former smoker - Family History Father Hx Family Genitourinary Disorders: No (No other family history of prostate cancer) Internal Medicine - H&P: Meds Divalproex Sodium [Depakote] 250 mg PO BID 11/11/18 [History] Escitalopram [Lexapro] 20 mg PO DAILY 11/11/18 [History] Famotidine [Heartburn Prevention] 20 mg PO HS 11/11/18 [History] Ipratropium/Albuterol Neb [Duoneb] 3 ml IH BID 11/11/18 [History] Ipratropium/Albuterol Neb [Duoneb] 3 ml IH TID PRN 11/11/18 [History] Melatonin 5 mg PO HS 11/11/18 [History] Multivitamin [One Daily Multivitamin] 1 each PO DAILY 11/11/18 [History] Nitrofurantoin [Macrodantin] 50 mg PO DAILY 11/11/18 [History] OLANZapine [Zyprexa] 10 mg PO HS 11/11/18 [History] Ropinirole HCl [Requip] 2 mg PO HS 11/11/18 [History] Tramadol HCl [Ultram] 50 mg PO TID 11/11/18 [History] Trazodone HCl 100 mg PO HS 11/11/18 [History] Allergy/AdvReac Type Severity Reaction Status Date / Time No Known Allergies Allergy Verified 11/11/18 19:40 ROS unobtainable: due to endotracheal tube, due to mental status All Systems PM: A 10-system review of systems was performed and is negative for pertinent findings except as documented above in the HPI. - Constitutional Vitals: Temp Pulse Resp BP Pulse Ox 100.1 F H 143 16 138/87 100 11/11/18 18:51 11/11/18 19:06 11/11/18 20:10 11/11/18 19:06 11/11/18 20:10 Exam: GENERAL: Cachectic and ill-appearing elderly male sedated on the ventilator. HEENT: Atraumatic and normocephalic. Endotracheal tube in place. CARDIOVASCULAR: Irregular rate and rhythm. S1 and S2 present. RESPIRATORY: Coarse breath sounds bilaterally. Chest rises and falls symmetrically. GASTROINTESTINAL: Bowel sounds present 4 quadrants. Abdomen is soft, nontender, nondistended. Suprapubic catheter in place. EXTREMITIES: 2-3+ pitting edema in bilateral lower extremities. SKIN: Warm, dry, and intact. NEUROLOGIC: Unable to assess secondary to sedation. PSYCHIATRIC: Unable to assess secondary to sedation. Internal Med - H&P Results - Labs CBC & Chem 7: 11/11/18 18:58 11/11/18 18:58 Labs: Short CBC 11/11/18 Range/Units 18:58 WBC 4.3 (4.3-11.1) K/mcL Hgb 12.0 L (12.9-16.9) g/dL Hct 38.4 (37.5-50.1) % Plt Count 223 (140-400) K/mcL Neutrophils # 3.3 (1.6-8.9) K/mcL BMP 11/11/18 18:58 Sodium 138 Potassium 5.0 Chloride 97 L Carbon Dioxide 23 BUN 19 Creatinine 1.05 Glucose 125 H Calcium 9.4 Cardiac Enzymes 11/11/18 Range/Units 18:58 Troponin I 0.03 (< 0.04) ng/mL Liver Function 11/11/18 Range/Units 18:58 Total Bilirubin 0.9 (0.3-1.0) mg/dL Direct Bilirubin 0.2 (0.0-0.2) mg/dL AST 16 (13-39) Units/L ALT 9 (7-52) Units/L Alkaline Phosphatase 77 (34-104) Units/L Albumin 3.9 (3.5-5.7) g/dL Urine 11/11/18 Range/Units 20:52 Urine Color Yellow (Yellow) Urine Clarity Cloudy A (Clear) Urine pH 6.5 (5.0-8.0) pH Units Ur Specific [place] 1.012 (1.010-1.025) Urine Protein 30 H (Neg-Trace) mg/dL Urine Glucose (UA) Normal (Normal) mg/dL - ABG Interpretation ABG results: 11/11/18 19:05 ABG pH 7.40 ABG pCO2 37 ABG pO2 69 L ABG HCO3 23 ABG Total CO2 24 ABG O2 Saturation 94 L ABG Base Excess -2 - Impressions ITS Impressions Chest X-Ray 11/11/18 19:13 IMPRESSION: 1. Endotracheal tube 4 cm above the harpal 2. Bronchitis with multifocal atelectasis. Small irregular opacities may indicate bronchiolitis/broncho pneumonia D/ / Ab Cason MD / Ab Cason MD Interpreting Provider: Ab Cason MD Head CT 11/11/18 19:52 IMPRESSION: No acute intracranial abnormality. Chronic microvascular ischemic changes and global cerebral atrophy. D/ / Kal Lira MD / Kal Lira MD Interpreting Provider: Kal Lira MD - Assessment and Plan (1) Acute respiratory failure Current Visit: Yes Status: Acute Assessment and plan: Likely multifactorial etiology, including severe sepsis, pneumonia, COPD exacerbation, and fluid overload. Patient was noted to be significantly tachypneic upon arrival to the emergency department, with respiratory rate 40-50 times per minute, with oxygen saturation noted at 84%. Patient was reportedly in significant distress at the time of arrival, repeatedly requesting "someone help me"; per ED documentation, patient was very confused and combative initially, after which he became less responsive. Patient was intubated in the emergency department and placed on the ventilator, with improvement in oxygen saturation. ABG obtained in the emergency department demonstrated pH 7.40, PCO2 37, PO2 69, HCO3 23, and oxygen saturation 94%. Plan: - Continue sedation and mechanical ventilation. - Repeat ABG and chest x-ray at 0400. - Consult placed to critical care team for ventilator management. - Further plan as detailed below. Qualifiers: Respiratory failure complication: hypoxia Qualified Code(s): J96.01 - Acute respiratory failure with hypoxia (2) Severe sepsis Current Visit: Yes Status: Acute Assessment and plan: Secondary to pneumonia and UTI. Patient initially met sepsis criteria with tachycardia (HR 140bpm), tachypnea (RR 27), and elevated lactic acid of 8.2. Fluid resuscitation was administered in the ED, with a total of 6L of 0.9% NaCl administered. Repeat lactic acid was WNL at 1.2. - Blood, urine, and sputum cultures pending. MRSA nasal swab pending. - Continue broad spectrum antimicrobial therapy with vancomycin, zosyn, and azithromycin. - Monitor and trend daily laboratory studies. (3) Pneumonia Current Visit: Yes Status: Acute Assessment and plan: Contributing cause of patient's severe sepsis and acute respiratory failure; infectious agent unknown. CXR performed on 11/11/2018 demonstrated bronchitis with multifocal atelectasis and small irregular opacities possibly indicative of bronchiolitis/b ronchopneumonia. Subsequent chest CTA demonstrated dense consolidations in the lower lobes bilaterally with associated small pleural effusions. Patient was also noted to have centrilobular and paraseptal emphysema with findings suggestive of pulmonary edema. - Urine strep pneumo and legionella antigens pending. - Sputum culture pending. - Continue antimicrobial therapy as detailed above. - Consider respiratory infectious panel depending on clinical course. Qualifiers: Pneumonia type: due to unspecified organism Laterality: bilateral Lung location: lower lobe of lung Qualified Code(s): J18.1 - Lobar pneumonia, unspecified organism (4) UTI (urinary tract infection) Current Visit: Yes Status: Acute Assessment and plan: Contributing cause of patient's severe sepsis. Urinalysis was significant for 30 protein, large blood, positive nitrite, large leukocyte esterase, TNTC RBCs, TNTC WBCs, and many urine bacteria. ED staff reportedly was unable to insert a [place] catheter despite multiple attempts, and patient did require placement of suprapubic catheter by urology while in the ED. - Urine culture pending. - Continue antimicrobial therapy as detailed above. - Appreciate neurology assistance in management of this problem. Qualifiers: Urinary tract infection type: site unspecified Hematuria presence: with hematuria Qualified Code(s): N39.0 - Urinary tract infection, site not specified; R31.9 - Hematuria, unspecified (5) Acute exacerbation of chronic obstructive airways disease Current Visit: Yes Status: Acute Assessment and plan: Suspect COPD exacerbation secondary to pneumonia. - Continue antimicrobial therapy as detailed above. - IV solu-medrol 40mg Q6H. - Duonebs Q4H scheduled, with PRN albuterol nebs Q2H. (6) Goals of care, counseling/discussion Current Visit: Yes Status: Acute Assessment and plan: Patient currently resides at a senior living facility, and was transported to the ED via EMS for evaluation of shortness of breath. Patient was accompanied by [place] DNR-Comfort Care paperwork dated 10/03/2018; however, he did arrive in the ICU s/p intubation for acute respiratory failure. I spoke with the ED resident that initially cared for Mr. Sampson, who reported that the patient was in severe distress upon arrival, repeatedly calling out "somebody help me!". Due to patient's declining respiratory status, decision was made to recommend intubation. Patient was informed that intubation was really the only way that his breathing could be assisted, which patient was agreeable to. Patient reportedly became further confused and less responsive immediately after. ED staff did discuss the need for intubation with the patient's daughter, who is his POA, who stated that the patient would want to proceed with this procedure. After arrival in the ICU, patient's family was brought back to visit at the bedside. I discussed the patient's prior DNR order, and requested clarification from his POA regarding what his wishes were. She stated that he would not want heroic measures, such as chest compressions, shocks, or invasive lines for blood pressure medications; however, she felt that he would be okay with short-term intubation in this instance in order to allow workup for underlying cause. She stated that he would not want further invasive procedures of any kind, though she would like to continue antibiotics and other treatments for his acute problems. Consult has been placed with palliative care team for assistance regarding this patient's management. (7) Dementia Current Visit: Yes Status: Chronic Assessment and plan: History of dementia, with home medications of Depakote 250mg BID and olanzapine 10mg. Qualifiers: Dementia type: Alzheimer's disease Alzheimer's disease onset: unspecified onset Dementia behavioral disturbance: with behavioral disturbance Qualified Code(s): G30.9 - Alzheimer's disease, unspecified; F02.81 - Dementia in other diseases classified elsewhere with behavioral disturbance (8) Multiple fractures Current Visit: Yes Status: Acute Assessment and plan: Unclear etiology. Chest CTA performed on 11/11/2018 demonstrated suspected acute fractures of T4, T5, T7, T8, T10, and T11 vertebral bodies with associated areas of paraspinal he matoma. SNF documentation was reviewed, which reveals a history of frequent falls and osteoporosis. Patient has had no recent trauma per ED or family report. - Consider PT/OT evaluation and recommendation once patient has recovered from acute illness. (9) Severe protein-calorie malnutrition Current Visit: Yes Status: Chronic Assessment and plan: Likely secondary to dementia and multiple medical comorbidities. Family reports that patient has had trouble swallowing recently, and has been on a thickened liquid diet at the nursing facility. - Consider nutrition consult for feeding recommendations. (10) History of prostate cancer Current Visit: Yes Status: Chronic Assessment and plan: Family reports history of prostate cancer diagnosed ~2015. They state that no treatment or intervention was recommended due to patient's age and prolonged natural history of the disease. (11) History of atrial fibrillation Current Visit: Yes Status: Chronic (12) Hypertension Current Visit: Yes Status: Acute Assessment and plan: History of hypertension per nursing facility records. Patient does not appear to be on regular antihypertensive agents based on review of home medication list. Qualifiers: Hypertension type: essential hypertension Qualified Code(s): I10 - Essential (primary) hypertension (13) DVT prophylaxis Current Visit: Yes Status: Acute Assessment and plan: - SCDs. - Time Spent With Patient Total time spent is greater than 50% in coordination of care (as documented) at patient's floor/unit and/or counseling patient: <James Swann - Last Filed: 11/12/18 03:59> Date of Encounter: 11/12/18 Internal Medicine - H&P: HPI History of present illness: Mr. Sampson is a 88 year old male All Systems PM: A 10-system review of systems was performed and is negative for pertinent findings except as documented above in the HPI. - Constitutional Vitals: Temp Pulse Resp BP Pulse Ox 98.5 F 54 12 81/48 99 11/12/18 00:30 11/12/18 02:00 11/12/18 02:00 11/12/18 02:00 11/12/18 02:00 Internal Med - H&P Results - Labs CBC & Chem 7: 11/12/18 03:25 11/11/18 18:58 Labs: Short CBC 11/11/18 11/12/18 Range/Units 18:58 03:25 WBC 4.3 11.0 D (4.3-11.1) K/mcL Hgb 12.0 L 9.0 L D (12.9-16.9) g/dL Hct 38.4 28.9 L (37.5-50.1) % Plt Count 223 122 L (140-400) K/mcL Neutrophils # 3.3 10.3 H (1.6-8.9) K/mcL BMP 11/11/18 18:58 Sodium 138 Potassium 5.0 Chloride 97 L Carbon Dioxide 23 BUN 19 Creatinine 1.05 Glucose 125 H Calcium 9.4 Cardiac Enzymes 11/11/18 Range/Units 18:58 Troponin I 0.03 (< 0.04) ng/mL Liver Function 05/19/19 Range/Units 18:58 Total Bilirubin 0.9 (0.3-1.0) mg/dL Direct Bilirubin 0.2 (0.0-0.2) mg/dL AST 16 (13-39) Units/L ALT 9 (7-52) Units/L Alkaline Phosphatase 77 (34-104) Units/L Albumin 3.9 (3.5-5.7) g/dL Urine 11/11/18 Range/Units 20:52 Urine Color Yellow (Yellow) Urine Clarity Cloudy A (Clear) Urine pH 6.5 (5.0-8.0) pH Units Ur Specific [place] 1.012 (1.010-1.025) Urine Protein 30 H (Neg-Trace) mg/dL Urine Glucose (UA) Normal (Normal) mg/dL - ABG Interpretation ABG results: 11/11/18 19:05 ABG pH 7.40 ABG pCO2 37 ABG pO2 69 L ABG HCO3 23 ABG Total CO2 24 ABG O2 Saturation 94 L ABG Base Excess -2 - Impressions ITS Impressions Chest X-Ray 11/11/18 19:13 IMPRESSION: 1. Endotracheal tube 4 cm above the harpal 2. Bronchitis with multifocal atelectasis. Small irregular opacities may indicate bronchiolitis/broncho pneumonia D/ / Ab Cason MD / Ab Cason MD Interpreting Provider: Ab Cason MD Head CT 11/11/18 19:52 IMPRESSION: No acute intracranial abnormality. Chronic microvascular ischemic changes and global cerebral atrophy. D/ / Kal Lira MD / Kal Lira MD Interpreting Provider: Kal Lira MD Chest CTA 11/11/18 22:07 IMPRESSION: 1. No evidence of a pulmonary embolism. 2. Suspected acute fractures involving the T4, T5, T7, T8, T10, and T11 vertebral bodies with associated areas of paraspinal hematoma. 3. Dense consolidations are noted in the lower lobes bilaterally with associated small pleural effusions. 4. Cholelithiasis. 5. Hiatal hernia. The orogastric tube terminates in the hiatal hernia, above the diaphragm. 6. Centrilobular and paraseptal emphysema with findings suggestive of pulmonary edema. 7. Marked atherosclerotic disease. D/ / Eldon Rodriguez MD / Eldon Rodriguez MD Interpreting Provider: Eldon Rodriguez MD Abdomen/Pelvis CT 11/11/18 22:59 IMPRESSION: 1. No pneumoperitoneum. 2. Probable fecal impaction. 3. Cholelithiasis. 4. Diverticulosis without scan evidence for diverticulitis 5. High attenuation in the bladder likely represents hemorrhage. A suprapubic catheter is in place. D/ / Prashant José MD / Prashant José MD Interpreting Provider: Prashant José MD - Time Spent With Patient Total time spent is greater than 50% in coordination of care (as documented) at patient's floor/unit and/or counseling patient: - Attending Attestation I saw and evaluated the patient. I reviewed the residents note, performed my own physical examination and agree with findings and plan as documented in the residents note. Patient seen and examined on 11/12/18. Patient presented to the emergency room with shortness of breath. Has documentation indicating DNR comfort care. He was intubated in the emergency room after brief discussion with the patient and the daughter. Upon arrival to the ICU, discussion was had and daughter agreed to pursue comfort care measures at this point. She wanted palliative care and stated she would speak with her siblings regarding this decision. We will continue to monitor in the ICU overnight, with palliative care consult in the morning. Patient currently stable vital signs showed a hypotension with mean arterial pressures in the high 50s. Patient in no acute distress.
--- NOTE | 2018-11-11 22:54 | Urology - Consult Note ---
Date of Encounter: 11/11/18 Time of Encounter: 22:52 - Assessment and Plan (1) UTI (urinary tract infection) Current Visit: Yes Status: Acute Assessment and plan: 88-year-old man with concern for UTI with sepsis. I was able to pass a suprapubic tube. This was left to drainage. The catheter was secured appropriately. The ER will resume care and obtain imaging. Urology will follow along. Qualifiers: Urinary tract infection type: acute cystitis Hematuria presence: without hematuria Qualified Code(s): N30.00 - Acute cystitis without hematuria (2) Urethral stricture Current Visit: Yes Status: Acute Assessment and plan: I tried to place a wire down the urethra, but resistance was met. Therefore, we proceeded with the suprapubic tube placement. 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 He became critically ill and required intubation. An attempt was made at placing a Munoz catheter, but it did not pass. I was consult to obtain urinary drainage. He has a picture of sepsis. A urine sample was obtained by applying suprapubic pressure and expressing urine from the penis. This looked purulent. I spoke with the family. Informed me that he has a history of prostate cancer which has not been treated. He has had difficulty with Munoz catheter placements in the past. Past Med Surg Social Fam HX - Past Medical History Medical history: COPD - Social History Smoking Status: Former smoker - Family History Father Hx Family Genitourinary Disorders: No (No other family history of prostate cancer) Medications and Allergies Divalproex Sodium [Depakote] 250 mg PO BID 11/11/18 [History] Escitalopram [Lexapro] 20 mg PO DAILY 11/11/18 [History] Famotidine [Heartburn Prevention] 20 mg PO HS 11/11/18 [History] Ipratropium/Albuterol Neb [Duoneb] 3 ml IH BID 11/11/18 [History] Ipratropium/Albuterol Neb [Duoneb] 3 ml IH TID PRN 11/11/18 [History] Melatonin 5 mg PO HS 11/11/18 [History] Multivitamin [One Daily Multivitamin] 1 each PO DAILY 11/11/18 [History] Nitrofurantoin [Macrodantin] 50 mg PO DAILY 11/11/18 [History] OLANZapine [Zyprexa] 10 mg PO HS 11/11/18 [History] Ropinirole HCl [Requip] 2 mg PO HS 11/11/18 [History] Tramadol HCl [Ultram] 50 mg PO TID 11/11/18 [History] Trazodone HCl 100 mg PO HS 11/11/18 [History] Allergy/AdvReac Type Severity Reaction Status Date / Time No Known Allergies Allergy Verified 11/11/18 19:40 Review of Systems ROS unobtainable: due to endotracheal tube Exam Initial Vital Signs Pulse Ox 84 11/11/18 18:50 - General physical appearance Present: other (Intubated sedated) - Eyes Absent: icteric - ENT Present: normal nares - Neck Present: trachea midline - Respiratory Present: other (On a ventilator) - Cardiovascular Cardiovascular exam IM: tachycardia - Abdomen Abdomen: Present: soft, distended (Mild suprapubic distention) - Genitourinary normal penis with no external lesions - Integumentary Present: no rash - Neurologic Present: other (Sedated) - Musculoskeletal Present: other (Grossly normal. Moves in response to pain stimulus) Urology Results - Labs 11/11/18 18:58 11/11/18 18:58 Abnormal lab results RBC 3.85 M/mcL (4.19-5.50) L 11/11/18 18:58 Hgb 12.0 g/dL (12.9-16.9) L 11/11/18 18:58 MCHC 31.3 g/dL (31.6-35.5) L 11/11/18 18:58 RDW 15.5 % (11.5-14.5) H 11/11/18 18:58 PT 12.3 Seconds (9.4-12.1) H 11/11/18 18:58 APTT 25.7 Seconds (26.0-36.0) L 11/11/18 18:58 ABG pO2 69 mmHg (85-104) L 11/11/18 19:05 ABG O2 Saturation 94 % (95-98) L 11/11/18 19:05 Chloride 97 mEq/L (98-107) L 11/11/18 18:58 Glucose 125 mg/dL (70-105) H 11/11/18 18:58 Lactic Acid 8.2 mmol/L (0.5-2.2) H* 11/11/18 18:58 Cloudy (Clear) A 11/11/18 20:52 30 mg/dL (Neg-Trace) H 11/11/18 20:52 Large (Negative) H 11/11/18 20:52 Positive (Negative) A 11/11/18 20:52 Ur Leukocyte Esterase Large (Negative) H 11/11/18 20:52 TNTC per hpf (0-3) H 11/11/18 20:52 TNTC per hpf (0-3) H 11/11/18 20:52 Many per hpf (None-Few) H 11/11/18 20:52 Ur Culture Indicated? YES (NO) A 11/11/18 20:52 Diabetes panel 11/11/18 Range/Units 18:58 Sodium 138 (136-145) mEq/L Potassium 5.0 (3.5-5.1) mEq/L Chloride 97 L (98-107) mEq/L Carbon Dioxide 23 (23-29) mEq/L BUN 19 (8-23) mg/dL Creatinine 1.05 (0.70-1.30) mg/dL Glucose 125 H (70-105) mg/dL Calcium 9.4 (8.6-10.3) mg/dL AST 16 (13-39) Units/L ALT 9 (7-52) Units/L Alkaline Phosphatase 77 (34-104) Units/L Albumin 3.9 (3.5-5.7) g/dL Calcium panel 11/11/18 Range/Units 18:58 Calcium 9.4 (8.6-10.3) mg/dL Phosphorus 3.8 (2.7-4.5) mg/dL Albumin 3.9 (3.5-5.7) g/dL Pituitary panel 11/11/18 Range/Units 18:58 Sodium 138 (136-145) mEq/L Potassium 5.0 (3.5-5.1) mEq/L Chloride 97 L (98-107) mEq/L Carbon Dioxide 23 (23-29) mEq/L BUN 19 (8-23) mg/dL Creatinine 1.05 (0.70-1.30) mg/dL Glucose 125 H (70-105) mg/dL Calcium 9.4 (8.6-10.3) mg/dL Adrenal panel 11/11/18 Range/Units 18:58 Sodium 138 (136-145) mEq/L Potassium 5.0 (3.5-5.1) mEq/L Chloride 97 L (98-107) mEq/L Carbon Dioxide 23 (23-29) mEq/L BUN 19 (8-23) mg/dL Creatinine 1.05 (0.70-1.30) mg/dL Glucose 125 H (70-105) mg/dL Calcium 9.4 (8.6-10.3) mg/dL Total Bilirubin 0.9 (0.3-1.0) mg/dL AST 16 (13-39) Units/L ALT 9 (7-52) Units/L Alkaline Phosphatase 77 (34-104) Units/L Albumin 3.9 (3.5-5.7) g/dL All other labs normal. Procedures:Urology - Suprapubic Catheter Initial Additional comments: I obtained informed consent from the family for Munoz catheter placement, possible urethral dilation, and possible suprapubic tube placement. We discussed the risks of the procedure which include but are not limited to bleeding, infection, injury or structures, bowel injury, and need for further procedures. They agreed to proceed. A previous bladder scan showed approximately 800 milliliters in his bladder. His genitalia and lower abdomen were prepped and draped in sterile fashion. I attempted to pass a zip wire down the urethra. Resistance was met in the bulbous urethra. I used an angle tip zip wire and tried to adjust the angle, but the wire did not pass. At this point I elected to proceed with superior tube placement. Approximately 2 fingerbreadths above the pubic bone, I injected local anesthetic. A small incision in the skin was made with a scalpel. The Daisy suprapubic tube was placed. I had a 10 ml syringe pulling vacuum at the end of the suprapubic tube. I noted air and possible feculent material return into the 10ml syringe. I was concerned that I perforated the bowel. The Daisy catheter was removed. Utilizing the 22-gauge needle I placed this on a 10 mL syringe. I directed this needle inferiorly towards the penis while withdrawing on the syringe and clear urine returned. I then replaced the Bonnano catheter back in this direction and clear urine returned out of it. The catheter was deployed and the needle was removed. I sutured the catheter to the skin using interrupted 3-0 Prolene 4. The catheter was secured to the patient on the table. I informed the emergency room department resident who consulted me of my concern for possible bowel perforation with the initial placement of the suprapubic tube. We will be obtaining a CT of the chest, abdomen and pelvis. I also discussed this with the family. The patient is currently on 3 antibiotics. Consult Discharge Plan - Plan Referrals: Huey Yi DO [Primary Care Provider] -
[2018-11-12] MEDS ORDERED: 0.9 % Sodium Chloride 1,000 ML ONE (00:01)
[2018-11-12] MEDS ORDERED: Naloxone 0.4 MG/ML INJ IVP PRN ×2 (00:45→14:20)
[2018-11-12] MEDS ORDERED: Artificial Tears SOLN 15 ML BOTTLE BOTH EYES PRN (00:45)
[2018-11-12] MEDS: Albumin 25% 25gram/100mL 25 GM/100 ML IV.SOLN IVC SCH ×2 (01:43→03:23)
[2018-11-12] MEDS ORDERED: Albuterol 2.5 MG/3 ML NEBULIZER IH PRN ×2 (02:33→14:20)
[2018-11-12] MEDS: Ipratropium/Albuterol Neb 3 ML IH SCH ×5 (03:37→20:14)
[2018-11-12] MEDS: Artificial Tears SOLN 15 ML BOTTLE BOTH EYES SCH ×3 (03:42→10:34)
[2018-11-12 03:55] LABS: Hematocrit 28.9 % (37.5-50.1); Immature Granulocytes % 0.6 % (0-4); Lymphocytes # 0.3 K/mcL (0.6-4.6); Lymphocytes % 2.3 %; Mean Corpuscular HGB Conc 31.1 g/dL (31.6-35.5); Mean Corpuscular Hemoglobin 31.1 pg (28.0-33.3); Mean Platelet Volume 9.9 fL (9.4-12.4); Monocytes # 0.4 K/mcL (0.0-1.3); Monocytes % 3.6 %; Neutrophils # 10.3 K/mcL (1.6-8.9); Platelet Count 122 K/mcL (140-400); Red Blood Count 2.89 M/mcL (4.19-5.50); Red Cell Distribution Width 15.6 % (11.5-14.5); Segmented Neutrophils % 93.5 %
[2018-11-12 03:59] LABS: VBG Ionized Calcium 1.04 mmol/L (1.15-1.35)
[2018-11-12 04:00] LABS: INR 1.3; Prothrombin Time 14.6 Seconds (9.4-12.1)
[2018-11-12 04:13] LABS: Alanine Aminotransferase 12 Units/L (7-52); Albumin 2.9 g/dL (3.5-5.7); Albumin/Globulin Ratio 1.2 (1.1-2.2); Alkaline Phosphatase 47 Units/L (34-104); Aspartate Amino Transferase 26 Units/L (13-39); BUN/Creatinine Ratio 26 (6-26); Bilirubin,Total 0.7 mg/dL (0.3-1.0); Blood Urea Nitrogen 17 mg/dL (8-23); Carbon Dioxide 23 mEq/L (23-29); Chloride 111 mEq/L (98-107); Globulin 2.4 g/dL (2.4-3.5); Glucose 131 mg/dL (70-105); Magnesium 1.6 mg/dL (1.6-2.6); Osmolality,Calculated 293 (280-300); Phosphorous 2.9 mg/dL (2.7-4.5); Potassium 4.2 mEq/L (3.5-5.1); Sodium 140 mEq/L (136-145); Total Protein 5.3 g/dL (6.4-8.9); eGFR For Non-African Americans > 60 (> 60)
[2018-11-12 05:21] LABS: ABG Base Excess -2 mEq/L (-2 to 3); ABG HCO3 24 mEq/L (21-27); ABG Oxygen Saturation 95 % (95-98); ABG PCO2 49 mmHg (35-45); ABG PO2 85 mmHg (85-104); ABG TCO2 26 mEq/L (20-26); Blood Gas Modality VC; Blood Gas PEEP 5 cm H2O; Blood Gas Respiration Rate 12; Blood Gas VT 500 cc
[2018-11-12] MEDS ORDERED: Calcium Gluconate 2,000 MG in 0.9 % Sodium Chloride 100 ML IVPB ONE (05:24)
[2018-11-12] MEDS ORDERED: MethylPREDNISolone 40 MG/ML VIAL IVP SCH ×2 (06:00→18:00)
[2018-11-12] MEDS ORDERED: Pantoprazole 40 MG VIAL IVP SCH (06:30)
[2018-11-12] MEDS ORDERED: Piperacillin/Tazobactam 3.375 GM in 0.9 % Sodium Chloride Mini Bag 100 ML IVPB SCH (08:00)
[2018-11-12] MEDS: FentaNYL (PF) 1,000 MCG in 0.9 % Sodium Chloride 80 ML IVC SCH (08:04)
--- NOTE | 2018-11-12 08:49 | Urology Progress Note ---
Date of Encounter: 11/12/18 Time of Encounter: 08:10 - Assessment and Plan (1) Bladder outlet obstruction Current Visit: Yes Status: Acute (2) UTI (urinary tract infection) Current Visit: Yes Status: Acute Assessment and plan: Patient is an 88-year-old male who presents with urinary tract infection and sepsis. Blood and urine cultures are pending. S/P tube in proper position and draining sufficiently. Patient is receiving IV Zosyn and vancomycin. Qualifiers: Urinary tract infection type: site unspecified Hematuria presence: with hematuria Qualified Code(s): N39.0 - Urinary tract infection, site not specified; R31.9 - Hematuria, unspecified (3) Urethral stricture Current Visit: Yes Status: Acute Assessment and plan: Patient is an 88-year-old male who presents with a urethral stricture. Dr. Galvin was unable to successfully pass a urethral Munoz catheter secondary to urethral stricture and bladder outlet obstruction. Dr. Galvin placed a suprapubic catheter that is draining sufficiently. Qualifiers: Urethral stricture sex-location: male urethra-bulbous Qualified Code(s): N35.812 - Other urethral bulbous stricture, male Progress Note Narrative: Patient seen and examined lying in bed in no apparent distress. Patient is sedated and undergoing mechanical ventilation. Super. Catheter is indwelling and draining scant amount of transparent, dark yellow urine into bedside bag. Objective Initial Vital Signs Pulse Ox 84 11/11/18 18:50 - General physical appearance Present: no distress, no pain - Respiratory Present: normal expansion. Absent: normal respiratory effort (mechanical ventilation ) - Abdomen Present: wound (SP site benign). Absent: distended - Genitourinary Urine Appearance: Present: Clear - Integumentary Present: no rash, no abnormal pigmentation - Musculoskeletal Present: normal posture - Psychiatric Present: other (Patient is sedated). Absent: oriented to time, oriented to person, oriented to place, speech is normal, memory intact - Labs 11/12/18 03:25 11/12/18 03:25 Diabetes panel 11/11/18 11/12/18 Range/Units 18:58 03:25 Sodium 138 140 (136-145) mEq/L Potassium 5.0 4.2 (3.5-5.1) mEq/L Chloride 97 L 111 H (98-107) mEq/L Carbon Dioxide 23 23 (23-29) mEq/L BUN 19 17 (8-23) mg/dL Creatinine 1.05 0.65 L (0.70-1.30) mg/dL Glucose 125 H 131 H (70-105) mg/dL Calcium 9.4 7.0 L (8.6-10.3) mg/dL AST 16 26 (13-39) Units/L ALT 9 12 (7-52) Units/L Alkaline Phosphatase 77 47 (34-104) Units/L Albumin 3.9 2.9 L (3.5-5.7) g/dL Calcium panel 11/11/18 11/12/18 Range/Units 18:58 03:25 Calcium 9.4 7.0 L (8.6-10.3) mg/dL Phosphorus 3.8 2.9 (2.7-4.5) mg/dL Albumin 3.9 2.9 L (3.5-5.7) g/dL Pituitary panel 11/11/18 11/12/18 Range/Units 18:58 03:25 Sodium 138 140 (136-145) mEq/L Potassium 5.0 4.2 (3.5-5.1) mEq/L Chloride 97 L 111 H (98-107) mEq/L Carbon Dioxide 23 23 (23-29) mEq/L BUN 19 17 (8-23) mg/dL Creatinine 1.05 0.65 L (0.70-1.30) mg/dL Glucose 125 H 131 H (70-105) mg/dL Calcium 9.4 7.0 L (8.6-10.3) mg/dL Adrenal panel 11/11/18 11/12/18 Range/Units 18:58 03:25 Sodium 138 140 (136-145) mEq/L Potassium 5.0 4.2 (3.5-5.1) mEq/L Chloride 97 L 111 H (98-107) mEq/L Carbon Dioxide 23 23 (23-29) mEq/L BUN 19 17 (8-23) mg/dL Creatinine 1.05 0.65 L (0.70-1.30) mg/dL Glucose 125 H 131 H (70-105) mg/dL Calcium 9.4 7.0 L (8.6-10.3) mg/dL Total Bilirubin 0.9 0.7 (0.3-1.0) mg/dL AST 16 26 (13-39) Units/L ALT 9 12 (7-52) Units/L Alkaline Phosphatase 77 47 (34-104) Units/L Albumin 3.9 2.9 L (3.5-5.7) g/dL Consult Discharge Plan - Plan Referrals: Huey Yi DO [Primary Care Provider] -
--- NOTE | 2018-11-12 08:56 | Pulmonology Consult Note ---
<Etelvina Matthew - Last Filed: 11/12/18 15:40> Date of Encounter: 11/12/18 Time of Encounter: 08:47 Assessment and Plan (1) Acute respiratory failure with hypoxia Current Visit: Yes Status: Acute Was presented to the ED via EMS due to acute onset of shortness of breath, likely secondary to pneumonia Upon arrival was noted to be tachypneic with respiratory rate 40 to 50s, oxygen saturation was 84% CTA of the chest showed dense consolidation in the bilateral lower lobe with centrilobular emphysema Was intubated in the ED and has subsequently been extubated given patient family's wishes Blood gas was positive for PaO2 of 69, pH and PCO2 were within normal limits -Now comfortable on oxygen mask saturating at 100% -Continue Solu-Medrol -Continue DuoNeb (2) Bacteremia Current Visit: Yes Status: Acute Presented to the ED was noted to be tachycardic temperature was elevated at 100.1 Blood cultures positive for Escherichia coli and Enterobacter Could be secondary to UTI -Continue Zosyn, day 1 -Continue to follow sensitivities for blood culture (3) Acute exacerbation of chronic obstructive airways disease Current Visit: Yes Status: Acute History of COPD likely exacerbation due to pleural effusion versus pneumonia Due to worsening respiratory failure required intubation has now been extubated and on oxygen mask -Continue to titrate supplemental oxygen to keep oxygen saturation above 88% -Continue IV Solu-Medrol, titrate as tolerated -Continue scheduled DuoNeb (4) UTI (urinary tract infection) Current Visit: Yes Status: Acute Presented to the ED with urinary retention, history of prostate cancer In the ED urology was consulted and had a suprapubic catheter placed -Continue Zosyn for bacteremia -Urine cultures pending -Urology consulted Qualifiers: Urinary tract infection type: site unspecified Hematuria presence: with hematuria Qualified Code(s): N39.0 - Urinary tract infection, site not specified; R31.9 - Hematuria, unspecified (5) Pneumonia Current Visit: Yes Status: Suspected CT of the chest showed consolidation lower lobes with centrilobular emphysema Urine Legionella and urine strep pneumonia is negative Sputum cultures pending Blood cultures positive for Escherichia coli -Continue IV Solu-Medrol, titrate as tolerated -Continue supplemental oxygen -Continue Zosyn Qualifiers: Pneumonia type: due to unspecified organism Laterality: bilateral Lung location: lower lobe of lung Qualified Code(s): J18.1 - Lobar pneumonia, unspecified organism (6) Sacral decubitus ulcer Current Visit: Yes Status: Acute Noted to have stage II decubitus ulcer on admission Qualifiers: Pressure injury stage: stage 2 Qualified Code(s): L89.152 - Pressure ulcer of sacral region, stage 2 (7) Goals of care, counseling/discussion Current Visit: Yes Status: Acute Was presented to the ED [facility] shortness of breath from outside nursing facility She became confused and less responsive in the ED subsequently requiring intubation upon discussion with the patient and the daughter His respiratory status had improved on the vent Discussed with the daughter and she reported patient she would like to extubate him soon was he is able to tolerate a given his wishes They would like to continue treating the infection with IV antibiotics but did not want any invasive interventions Palliative is consulted and following for further assistance and management (8) DVT prophylaxis Current Visit: Yes Status: Acute SCDs History of Present Illness Consult date: 11/12/18 Reason for consult: dyspnea Chief complaint: respiratory failure History of present illness: Mr. Sampson is a 88 year old male past medical history COPD, Alzheimer's dementia, atrial fibrillation, hypertension, hyperlipidemia, prostate cancer, osteoporosis who resides at residential facility was presented to the ED via EMS due to acute respiratory failure. In the ED he was noted to have severe tachypnea with respiratory rate of 40s to 50s per minute reported hypoxia and altered mental status and was subsequently intubated in the ER. The daughter was at bedside and agreed to intubation. In the ED urology was consulted for urinary retention. He had a suprapubic catheter placed, during the placement there is a concern for bowel perforation and subsequently had a CT of the abdomen and pelvis which does not show any pneumoperitoneum which showed diverticulosis, cholelithiasis and fecal impaction. There was high attenuation of the bladder which could be secondary to hemorrhage. Spoke with the daughterJennifer over the phone this morning about his current intubation status. She stated last night in the ED she was ok with him being intubated. But she now reports given his wishes of DNR CCA she would like that when the ET tube needs to be removed, it not be re-inserted. She states those wishes are his and she aligns with them. Past Med Surg Social Fam HX - Past Medical History Medical history: atrial fibrillation, COPD, dementia, hyperlipidemia, hypertension, osteoporosis Psychiatric history: anxiety, depression - Past Surgical History Surgical History: appendectomy Additional surgical history: back surgery - Social History Smoking Status: Former smoker Smokeless Tobacco Status: No Alcohol use: none Drug use: none - Family History Father Hx Family Genitourinary Disorders: No (No other family history of prostate cancer) Medications and Allergies Divalproex Sodium [Depakote] 250 mg PO BID 11/11/18 [History] Escitalopram [Lexapro] 20 mg PO DAILY 11/11/18 [History] Famotidine [Heartburn Prevention] 20 mg PO HS 11/11/18 [History] Ipratropium/Albuterol Neb [Duoneb] 3 ml IH BID 11/11/18 [History] Ipratropium/Albuterol Neb [Duoneb] 3 ml IH TID PRN 11/11/18 [History] Melatonin 5 mg PO HS 11/11/18 [History] Multivitamin [One Daily Multivitamin] 1 each PO DAILY 11/11/18 [History] Nitrofurantoin [Macrodantin] 50 mg PO DAILY 11/11/18 [History] OLANZapine [Zyprexa] 10 mg PO HS 11/11/18 [History] Ropinirole HCl [Requip] 2 mg PO HS 11/11/18 [History] Tramadol HCl [Ultram] 50 mg PO TID 11/11/18 [History] Trazodone HCl 100 mg PO HS 11/11/18 [History] Allergy/AdvReac Type Severity Reaction Status Date / Time No Known Allergies Allergy Verified 11/11/18 19:40 ROS unobtainable: due to endotracheal tube All Systems: The remainder of the systems were reviewed and are negative Physical Examination Vital Signs: Vital Signs, Last 4 Hours Temp Pulse Resp BP Pulse Ox 11/12/18 08:00 96.1 F L 48 13 109/49 98 11/12/18 07:55 13 99 11/12/18 07:30 60 11/12/18 07:00 54 14 116/56 98 11/12/18 06:00 85 22 107/61 99 11/12/18 05:42 12 102/56 97 11/12/18 05:00 63 14 102/57 97 General appearance: no acute distress, other (intubated) Eyes: nonicteric ENT: oropharynx moist Neck: supple, no lymphadenopathy Effort: normal Inspection: normal Auscultation: bilateral: other (periods of apnea) Cardiovascular: other (bradycardic) Gastrointestinal: soft, non-tender, non-distended Extremities: no cyanosis, no edema, pulses normal Musculoskeletal: no deformities other (intubated ) mood appropriate, anxious Ventilator Settings Ventilator Settings: Ventilator Settings, Last 8 Hours Ventilator Tidal Volume 500 Setting Ventilator Tidal Volume 500 Setting Ventilator Tidal Volume 500 Setting Ventilator Tidal Volume 500 Setting Ventilator Tidal Volume 500 Setting Ventilator Tidal Volume 500 Setting Ventilator Tidal Volume 500 Setting Ventilator Tidal Volume 500 Setting Ventilator Tidal Volume 500 Setting Ventilator Tidal Volume 500 Setting Ventilator Tidal Volume 500 Setting Ventilator Respiratory Rate 12 Setting Ventilator Respiratory Rate 12 Setting Ventilator Respiratory Rate 12 Setting Ventilator Respiratory Rate 12 Setting Ventilator Respiratory Rate 12 Setting Ventilator Respiratory Rate 12 Setting Ventilator Respiratory Rate 12 Setting Ventilator Respiratory Rate 12 Setting Ventilator Respiratory Rate 12 Setting Ventilator Respiratory Rate 12 Setting Ventilator Respiratory Rate 12 Setting Actual Respiratory Rate 13 Actual Respiratory Rate 15 Actual Respiratory Rate 14 Actual Respiratory Rate 22 Actual Respiratory Rate 12 Actual Respiratory Rate 14 Actual Respiratory Rate 12 Actual Respiratory Rate 12 Actual Respiratory Rate 12 Actual Respiratory Rate 12 Positive End Expiratory 5 Pressure Positive End Expiratory 5 Pressure Positive End Expiratory 5 Pressure Positive End Expiratory 5 Pressure Positive End Expiratory 5 Pressure Positive End Expiratory 5 Pressure Positive End Expiratory 5 Pressure Positive End Expiratory 5 Pressure Positive End Expiratory 5 Pressure Positive End Expiratory 5 Pressure Positive End Expiratory 5 Pressure Peak Inspiratory Airway 36 Pressure Peak Inspiratory Airway 37 Pressure Peak Inspiratory Airway 30 Pressure Peak Inspiratory Airway 25 Pressure Peak Inspiratory Airway 27 Pressure Peak Inspiratory Airway 28 Pressure Peak Inspiratory Airway 27 Pressure Peak Inspiratory Airway 24 Pressure Peak Inspiratory Airway 27 Pressure Peak Inspiratory Airway 26 Pressure Results - Laboratory Findings CBC and BMP: 11/12/18 03:25 11/12/18 03:25 ABG ABG pH 7.30 pH Units (7.32-7.45) L 11/12/18 05:18 ABG pCO2 49 mmHg (35-45) H 11/12/18 05:18 ABG pO2 85 mmHg (85-104) 11/12/18 05:18 ABG O2 Saturation 95 % (95-98) 11/12/18 05:18 PT/INR, D-dimer PT 14.6 Seconds (9.4-12.1) H 11/12/18 03:25 Abnormal lab findings: Abnormal lab results RBC 2.89 M/mcL (4.19-5.50) L 11/12/18 03:25 Hgb 9.0 g/dL (12.9-16.9) L D 11/12/18 03:25 Hct 28.9 % (37.5-50.1) L 11/12/18 03:25 MCHC 31.1 g/dL (31.6-35.5) L 11/12/18 03:25 RDW 15.6 % (11.5-14.5) H 11/12/18 03:25 Plt Count 122 K/mcL (140-400) L 11/12/18 03:25 10.3 K/mcL (1.6-8.9) H 11/12/18 03:25 0.3 K/mcL (0.6-4.6) L 11/12/18 03:25 PT 14.6 Seconds (9.4-12.1) H 11/12/18 03:25 APTT 25.7 Seconds (26.0-36.0) L 11/11/18 18:58 ABG pH 7.30 pH Units (7.32-7.45) L 11/12/18 05:18 ABG pCO2 49 mmHg (35-45) H 11/12/18 05:18 ABG pO2 69 mmHg (85-104) L 11/11/18 19:05 ABG O2 Saturation 94 % (95-98) L 11/11/18 19:05 Chloride 111 mEq/L (98-107) H 11/12/18 03:25 0.65 mg/dL (0.70-1.30) L 11/12/18 03:25 Glucose 131 mg/dL (70-105) H 11/12/18 03:25 POC Glucose 120 mg/dL (70-99) H 11/12/18 00:39 Lactic Acid 8.2 mmol/L (0.5-2.2) H* 11/11/18 18:58 Calcium 7.0 mg/dL (8.6-10.3) L 11/12/18 03:25 Venous Ioniz Calcium 1.04 mmol/L (1.15-1.35) L 11/12/18 03:55 B-Natriuretic Peptide 1158 pg/mL (Less than 100) H 11/12/18 03:25 5.3 g/dL (6.4-8.9) L 11/12/18 03:25 2.9 g/dL (3.5-5.7) L 11/12/18 03:25 Cloudy (Clear) A 11/11/18 20:52 30 mg/dL (Neg-Trace) H 11/11/18 20:52 Large (Negative) H 11/11/18 20:52 Positive (Negative) A 11/11/18 20:52 Ur Leukocyte Esterase Large (Negative) H 11/11/18 20:52 TNTC per hpf (0-3) H 11/11/18 20:52 TNTC per hpf (0-3) H 11/11/18 20:52 Many per hpf (None-Few) H 11/11/18 20:52 Ur Culture Indicated? YES (NO) A 11/11/18 20:52 - Microbiology Findings Microbiology Findings: Microbiology, Last 48 Hours 11/12/18 03:20 Legionella Antigen - Final Urine,Suprapubic Streptococcus pneumoniae Antigen (M - Final 11/11/18 20:52 Urine Culture - Preliminary Urine,Catheterized (Straight) Culture is incubating. 11/11/18 19:20 Blood Culture - Preliminary Peripheral Venipuncture Culture is incubating and being continuously monitored for growth. Final report to follow. - Clinical Findings Intake & Output: Intake & Output 11/11/18 11/12/18 11/12/18 23:59 07:59 15:59 Intake Total 6650 / 6650 1318.8 / 1386.0 67.2 / 1386.0 Output Total 400 / 400 Balance 6650 / 6650 918.8 / 986.0 67.2 / 986.0 Weight 61.552 kg 68 kg Consult Discharge Plan - Plan Referrals: Huey Yi, DO [Primary Care Provider] - <Antonella Gallegos - Last Filed: 11/12/18 21:57> Date of Encounter: 11/12/18 All Systems: The remainder of the systems were reviewed and are negative Physical Examination Vital Signs: Vital Signs, Last 4 Hours Temp Pulse Resp BP Pulse Ox 11/12/18 20:14 10 98 11/12/18 19:35 97.3 F L 80 20 118/68 93 Results - Laboratory Findings CBC and BMP: 11/12/18 03:25 11/12/18 03:25 ABG ABG pH 7.30 pH Units (7.32-7.45) L 11/12/18 05:18 ABG pCO2 49 mmHg (35-45) H 11/12/18 05:18 ABG pO2 85 mmHg (85-104) 11/12/18 05:18 ABG O2 Saturation 95 % (95-98) 11/12/18 05:18 PT/INR, D-dimer PT 14.6 Seconds (9.4-12.1) H 11/12/18 03:25 Abnormal lab findings: Abnormal lab results RBC 2.89 M/mcL (4.19-5.50) L 11/12/18 03:25 Hgb 9.0 g/dL (12.9-16.9) L D 11/12/18 03:25 Hct 28.9 % (37.5-50.1) L 11/12/18 03:25 MCHC 31.1 g/dL (31.6-35.5) L 11/12/18 03:25 RDW 15.6 % (11.5-14.5) H 11/12/18 03:25 Plt Count 122 K/mcL (140-400) L 11/12/18 03:25 10.3 K/mcL (1.6-8.9) H 11/12/18 03:25 0.3 K/mcL (0.6-4.6) L 11/12/18 03:25 PT 14.6 Seconds (9.4-12.1) H 11/12/18 03:25 APTT 25.7 Seconds (26.0-36.0) L 11/11/18 18:58 ABG pH 7.30 pH Units (7.32-7.45) L 11/12/18 05:18 ABG pCO2 49 mmHg (35-45) H 11/12/18 05:18 ABG pO2 69 mmHg (85-104) L 11/11/18 19:05 ABG O2 Saturation 94 % (95-98) L 11/11/18 19:05 Chloride 111 mEq/L (98-107) H 11/12/18 03:25 0.65 mg/dL (0.70-1.30) L 11/12/18 03:25 Glucose 131 mg/dL (70-105) H 11/12/18 03:25 POC Glucose 120 mg/dL (70-99) H 11/12/18 00:39 Lactic Acid 8.2 mmol/L (0.5-2.2) H* 11/11/18 18:58 Calcium 7.0 mg/dL (8.6-10.3) L 11/12/18 03:25 Venous Ioniz Calcium 1.04 mmol/L (1.15-1.35) L 11/12/18 03:55 B-Natriuretic Peptide 1158 pg/mL (Less than 100) H 11/12/18 03:25 5.3 g/dL (6.4-8.9) L 11/12/18 03:25 2.9 g/dL (3.5-5.7) L 11/12/18 03:25 Cloudy (Clear) A 11/11/18 20:52 30 mg/dL (Neg-Trace) H 11/11/18 20:52 Large (Negative) H 11/11/18 20:52 Positive (Negative) A 11/11/18 20:52 Ur Leukocyte Esterase Large (Negative) H 11/11/18 20:52 TNTC per hpf (0-3) H 11/11/18 20:52 TNTC per hpf (0-3) H 11/11/18 20:52 Many per hpf (None-Few) H 11/11/18 20:52 Ur Culture Indicated? YES (NO) A 11/11/18 20:52 Enterobacteriac sp PCR DETECTED (Not Detect) A 11/11/18 19:20 E. coli (PCR) DETECTED (Not Detect) A 11/11/18 19:20 - Microbiology Findings Microbiology Findings: Microbiology, Last 48 Hours 11/11/18 19:17 Blood Culture - Preliminary Peripheral Venipuncture Gram Negative Karan 11/11/18 19:20 Blood Culture - Preliminary Peripheral Venipuncture Gram Negative Karan 11/12/18 03:20 Legionella Antigen - Final Urine,Suprapubic Streptococcus pneumoniae Antigen (M - Final 11/11/18 20:52 Urine Culture - Preliminary Urine,Catheterized (Straight) Culture is incubating. - Clinical Findings Intake & Output: Intake & Output 11/12/18 11/12/18 11/12/18 07:59 15:59 23:59 Intake Total 1318.8 / 1486.0 167.2 / 1486.0 0 / 1486.0 Output Total 400 / 1000 100 / 1000 500 / 1000 Balance 918.8 / 486.0 67.2 / 486.0 -500 / 486.0 Weight 68 kg - Attending Attestation I saw and evaluated this patient and my medical decision-making was reviewed with the Resident Physician. I agree with the documented findings, disposition and treatment plan as described except to the extent set forth below. We independently had [id number] contact with the patient Patient seen and examined at bedside Labs, radiology, chart personally reviewed. Management was reviewed during multidisciplinary critical care rounds. INTERNET MARKETING DIRECTOR: Patient is waking up slowly toxic/metabolic and support per the secondary to Escherichia coli bacteremia most likely due to ATI Pulm: As acceptable oxygenation and ventilation patient never wanted to intubation and the hospitalist according to patient wishes patient was extubated to nasal cannula patient family at bedside with the decision was made Cards: Patient is hemodynamically stable positioning with septic shock not requiring any vasopressor. FEN-GI: After Extubation advanced diet as tolerated. 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 Lines: All lines examined without evidence of infection : Dispo: patient is comfort care with shifted to medical telemetry under hospitalist service palliative care will manage in 2A CODE: DNR CC
[2018-11-12] MEDS ORDERED: Chlorhexidine Rinse 15 ML MOUTHWASH MM SCH (09:00)
[2018-11-12] MEDS ORDERED: Haloperidol Lactate 5 MG/ML VIAL IVP ONE (10:07)
[2018-11-12] MEDS ORDERED: Haloperidol Lactate 5 MG/ML VIAL ONE (10:08)
[2018-11-12] MEDS ORDERED: *HR* FentaNYL (PF) 100 MCG/2 ML VIAL IVP ONE (10:13)
[2018-11-12] MEDS ORDERED: *HR* FentaNYL (PF) 100 MCG/2 ML VIAL ONE (10:15)
[2018-11-12 11:03] LABS: Acinetobacter baumannii by PCR Not Detected (Not Detect); Candida albicans by PCR Not Detected (Not Detect); Candida glabrata by PCR Not Detected (Not Detect); Candida krusei by PCR Not Detected (Not Detect); Candida parapsilosis by PCR Not Detected (Not Detect); Candida tropicalis by PCR Not Detected (Not Detect); Enterobacter cloacae Cmplx PCR Not Detected (Not Detect); Enterobacteriaceae by PCR DETECTED (Not Detect); Enterococcus by PCR Not Detected (Not Detect); Escherichia coli by PCR DETECTED (Not Detect); Klebsiella oxytoca by PCR Not Detected (Not Detect); Klebsiella pneumoniae by PCR Not Detected (Not Detect); Proteus by PCR Not Detected (Not Detect); Pseudomonas aeruginosa by PCR Not Detected (Not Detect); Serratia marcescens by PCR Not Detected (Not Detect); Staphylococcus aureus by PCR Not Detected (Not Detect); Staphylococcus by PCR Not Detected (Not Detect); Streptococcus agalactiae(B)PCR Not Detected (Not Detect); Streptococcus by PCR Not Detected (Not Detect); Streptococcus pneumoniae PCR Not Detected (Not Detect); Streptococcus pyogenes (A) PCR Not Detected (Not Detect); blaKPC Carbapenem-Resist Gene Not Detected (Not Detect)
--- NOTE | 2018-11-12 11:05 | Palliative - Consult Note ---
Date of Encounter: 11/12/18 Time of Encounter: 10:00 - Assessment and Plan (1) Dyspnea Current Visit: Yes Status: Acute Assessment and plan: Patient is s/p extubation. Tachypnea and accessory muscle use. Responds well to opioid and haldol IV, ordered prn. If pt able to swallow, will switch to PO. Qualifiers: Dyspnea type: acute respiratory distress Qualified Code(s): R06.03 - Acute respiratory distress (2) Palliative care encounter Current Visit: Yes Status: Acute Assessment and plan: Palliative consult for goals of care and advanced care planning. (3) UTI (urinary tract infection) Current Visit: Yes Status: Acute Assessment and plan: Blood cultures are positive for ecoli. Patient on appropriate ABX: zosyn. Will continue trial of treatment for 2 days. Qualifiers: Urinary tract infection type: site unspecified Hematuria presence: with hematuria Qualified Code(s): N39.0 - Urinary tract infection, site not specified; R31.9 - Hematuria, unspecified (4) Bladder outlet obstruction Current Visit: Yes Status: Acute Assessment and plan: Supr-pubic cath was place on admission by urology. (5) Goals of care, counseling/discussion Current Visit: Yes Status: Acute Assessment and plan: Met with patient's daughters Araseli (AILYN) and Kelle. Patient has 4 children. Discussed current medical condition, trajectory of illness, GOC and treatment options. Patient is to remain DNR and DNI. family aware that he is septic, and critical, however they are still hopeful for improvement. Agreed for a rial of treatment on current level of care for 2 days. If patient improves, will continue with the goal to discharge back to [place] once stable. If deteriorates, then will transition to comfort care only. Patient decided no escalation of care, including invasive test or pressure support. Palliative care will continue to follow. Palliative-CN HPI - Data of Consult Patient: new to practice Consult date: 11/12/18 Requesting Physician: John Romo MD Primary Care Provider: Huey Yi - Consult Narrative Palliative Care/Comfort Measures: Palliative care Reason for consult: Goals of care History of present illness: Mr. Sampson is a 88 year old male Mr. Sampson is a 88 year old male with a history of COPD, Alzheimer dementia with behavioral disturbance, atrial fibrillation, hypertension, hyperlipidemia, prostate cancer, osteoporosis, and frequent falls [facility]. Patient presented to the ED via EMS for evaluation of shortness of breath. In the ED, patient was in acute respiratory distress. Patient is DNRCC, however daughter Loreto Sorto ([facility]) gave permission for intubation and he was intubated and transferred to ICU. In the ED urology was consulted for urinary retention. He had a suprapubic catheter placed, during the placement there is a concern for bowel perforation and subsequently had a CT of the abdomen and pelvis which does not show any pneumoperitoneum which showed diverticulosis, cholelithiasis and fecal impaction. Daughter this morning was against intubation, Palliative care to define goals of care and symptom management. At the time of encounter, daughter has arrived and demanded patient to be extubated. Patient was just given Haldol 5mg IV, but remained tachypneic, using accessory muscles, saturating well on oxymask. Given Fentanyl 25mcg IV with good improvement of tachypnea. Patiet open eyes to valentin calling, but did not answer questions. Per the 2 daughters present, at his baseline he speaks only when he is willing to, but they believe he knows them. CC: John Romo MD - Time Spent with Patient Time: Total time spent is greater than 50% in coordination of care (as documented) at patient's floor/unit and/or counseling patient: Time with patient: 75 minutes Past Med Surg Social Fam HX - Past Medical History Medical history: atrial fibrillation, COPD, dementia, hyperlipidemia, hypertension, osteoporosis Psychiatric history: anxiety, depression - Past Surgical History Surgical History: appendectomy Additional surgical history: back surgery - Social History Smoking Status: Former smoker Smokeless Tobacco Status: No Alcohol use: none Drug use: none - Family History Father Hx Family Genitourinary Disorders: No (No other family history of prostate cancer) Medications and Allergies Divalproex Sodium [Depakote] 250 mg PO BID 11/11/18 [History] Escitalopram [Lexapro] 20 mg PO DAILY 11/11/18 [History] Famotidine [Heartburn Prevention] 20 mg PO HS 11/11/18 [History] Ipratropium/Albuterol Neb [Duoneb] 3 ml IH BID 11/11/18 [History] Ipratropium/Albuterol Neb [Duoneb] 3 ml IH TID PRN 11/11/18 [History] Melatonin 5 mg PO HS 11/11/18 [History] Multivitamin [One Daily Multivitamin] 1 each PO DAILY 11/11/18 [History] Nitrofurantoin [Macrodantin] 50 mg PO DAILY 11/11/18 [History] OLANZapine [Zyprexa] 10 mg PO HS 11/11/18 [History] Ropinirole HCl [Requip] 2 mg PO HS 11/11/18 [History] Tramadol HCl [Ultram] 50 mg PO TID 11/11/18 [History] Trazodone HCl 100 mg PO HS 11/11/18 [History] Allergy/AdvReac Type Severity Reaction Status Date / Time No Known Allergies Allergy Verified 11/11/18 19:40 ROS unobtainable: due to mental status Palliative Care-Exam - Constitutional Vitals: Temp Pulse Resp BP Pulse Ox 96.1 F L 46 14 125/70 97 11/12/18 08:00 11/12/18 09:00 11/12/18 09:30 11/12/18 09:00 11/12/18 10:00 Exam: General appearance: no acute distress, non verbal Eyes: nonicteric ENT: oropharynx moist Neck: supple, no lymphadenopathy Lungs: Tachypnea, using accessory muscles, reduced breath sounds in lungs bases Cardiovascular: S1,S2, no M/R/G Gastrointestinal: soft, non-tender, non-distended. supra-pubic [place] in place, draining bloody urine. Extremities: no cyanosis, no edema, pulses normal Musculoskeletal: no deformities Internal Medicine - CN: Reslt - Labs CBC & Chem 7: 11/12/18 03:25 11/12/18 03:25 Labs: Short CBC 11/11/18 11/12/18 Range/Units 18:58 03:25 WBC 4.3 11.0 D (4.3-11.1) K/mcL Hgb 12.0 L 9.0 L D (12.9-16.9) g/dL Hct 38.4 28.9 L (37.5-50.1) % Plt Count 223 122 L (140-400) K/mcL Neutrophils # 3.3 10.3 H (1.6-8.9) K/mcL BMP 11/11/18 11/12/18 18:58 03:25 Sodium 138 140 Potassium 5.0 4.2 Chloride 97 L 111 H Carbon Dioxide 23 23 BUN 19 17 Creatinine 1.05 0.65 L Glucose 125 H 131 H Calcium 9.4 7.0 L Cardiac Enzymes 11/11/18 Range/Units 18:58 Troponin I 0.03 (< 0.04) ng/mL Liver Function 11/11/18 11/12/18 Range/Units 18:58 03:25 Total Bilirubin 0.9 0.7 (0.3-1.0) mg/dL Direct Bilirubin 0.2 (0.0-0.2) mg/dL AST 16 26 (13-39) Units/L ALT 9 12 (7-52) Units/L Alkaline Phosphatase 77 47 (34-104) Units/L Albumin 3.9 2.9 L (3.5-5.7) g/dL Urine 11/11/18 Range/Units 20:52 Urine Color Yellow (Yellow) Urine Clarity Cloudy A (Clear) Urine pH 6.5 (5.0-8.0) pH Units Ur Specific [place] 1.012 (1.010-1.025) Urine Protein 30 H (Neg-Trace) mg/dL Urine Glucose (UA) Normal (Normal) mg/dL - ABG Interpretation ABG results: ABG ABG pH 7.30 pH Units (7.32-7.45) L 11/12/18 05:18 ABG pCO2 49 mmHg (35-45) H 11/12/18 05:18 ABG pO2 85 mmHg (85-104) 11/12/18 05:18 ABG O2 Saturation 95 % (95-98) 11/12/18 05:18 PT/INR, D-dimer PT 14.6 Seconds (9.4-12.1) H 11/12/18 03:25 - Impressions Impressions Chest X-Ray 11/11/18 19:13 IMPRESSION: 1. Endotracheal tube 4 cm above the harpal 2. Bronchitis with multifocal atelectasis. Small irregular opacities may indicate bronchiolitis/broncho pneumonia D/ / Ab Cason MD / Ab Cason MD Interpreting Provider: Ab Cason MD Head CT 11/11/18 19:52 IMPRESSION: No acute intracranial abnormality. Chronic microvascular ischemic changes and global cerebral atrophy. D/ / Kal Lira MD / Kal Lira MD Interpreting Provider: Kal Lira MD Chest CTA 11/11/18 22:07 IMPRESSION: 1. No evidence of a pulmonary embolism. 2. Suspected acute fractures involving the T4, T5, T7, T8, T10, and T11 vertebral bodies with associated areas of paraspinal hematoma. 3. Dense consolidations are noted in the lower lobes bilaterally with associated small pleural effusions. 4. Cholelithiasis. 5. Hiatal hernia. The orogastric tube terminates in the hiatal hernia, above the diaphragm. 6. Centrilobular and paraseptal emphysema with findings suggestive of pulmonary edema. 7. Marked atherosclerotic disease. D/ / 11/12/2018 07:09:59 Eldon Rodriguez MD / [facility] Interpreting Provider: Eldon Rodriguez MD Abdomen/Pelvis CT 11/11/18 22:59 IMPRESSION: 1. No pneumoperitoneum. 2. Probable fecal impaction. 3. Cholelithiasis. 4. Diverticulosis without scan evidence for diverticulitis 5. High attenuation in the bladder likely represents hemorrhage. A suprapubic catheter is in place. D/ / Prashant José MD / Prashant José MD Interpreting Provider: Prashant José MD Chest X-Ray 11/12/18 05:00 IMPRESSION: 1. The enteric tube was partially pulled back by the clinical team. This was discussed with the patient's nurse at 6:02 a.m. on 11/12/2018. The tube should be advanced approximately 10 cm to ensure that the side hole is within the hernia. 2. Increasing bibasilar atelectasis or pneumonia. D/ / Prashant José MD / Prashant José MD Interpreting Provider: Prashant José MD Consult Discharge Plan - Plan Referrals: Huey Yi DO [Primary Care Provider] - Palliative Quality Palliative Quality: Screen for Code Status: Yes, Screen for Goals of Care: Yes, Screen for Pain: Yes, If Pain Regimen Started, Initiate Bowel Regimen: Yes, Screen for Nausea/Vomitting: NA Code Status: 11/12/18 01:22 CODE [Resuscitation Status: Active] [RES] Routine Comment: Resuscitation Status: DNR-Comfort Care Palliative Scale - Palliative Performance Scale How ambulatory is this patient?: Mainly sit / lie What is patient's level of activity and evidence of disease?: Unable to do any work, Extensive disease How much self-care assistance does patient require?: Total care How much oral intake does the patient have?: Minimal to sips What is this patient's level of consciousness?: Full or drowsy with or without confusion Palliative Performance Score: 30 %
[2018-11-12] MEDS ORDERED: Furosemide 20 MG/2 ML VIAL IVP ONE (11:45)
[2018-11-12] MEDS ORDERED: Haloperidol Lactate 5 MG/ML VIAL IVP PRN (12:29)
[2018-11-12] MEDS ORDERED: Glycopyrrolate 0.2 MG/ML VIAL IVP PRN ×2 (12:29→14:20)
[2018-11-12] MEDS ORDERED: *HR* FentaNYL (PF) 100 MCG/2 ML VIAL IVP PRN ×2 (12:29→14:20)
[2018-11-12] MEDS ORDERED: *HR* LORazepam 2 MG/ML VIAL IVP ONE (14:11)
[2018-11-12] MEDS ORDERED: *HR* LORazepam 2 MG/ML VIAL ONE (14:14)
[2018-11-12] MEDS: MethylPREDNISolone 40 MG/ML VIAL IVP SCH (17:13)
[2018-11-12] MEDS: Piperacillin/Tazobactam 3.375 GM in 0.9 % Sodium Chloride Mini Bag 100 ML IVPB SCH (17:24)
[2018-11-12] MEDS ORDERED: Azithromycin 500 MG in D5% in Water 250 ML IVPB SCH (21:00)
[2018-11-12] MEDS: *HR* LORazepam 2 MG/ML VIAL IVP PRN (21:16)
[2018-11-13] MEDS: Ipratropium/Albuterol Neb 3 ML IH SCH ×4 (00:05→11:31)
[2018-11-13] MEDS ORDERED: *HR* LORazepam 2 MG/ML VIAL IVP ONE (00:25)
[2018-11-13] MEDS: Piperacillin/Tazobactam 3.375 GM in 0.9 % Sodium Chloride Mini Bag 100 ML IVPB SCH ×2 (00:26→07:51)
[2018-11-13] MEDS: Haloperidol Lactate 5 MG/ML VIAL IVP PRN ×2 (00:27→05:23)
[2018-11-13] MEDS: *HR* LORazepam 2 MG/ML VIAL IVP PRN ×2 (04:36→10:40)
[2018-11-13] MEDS: MethylPREDNISolone 40 MG/ML VIAL IVP SCH (05:24)
[2018-11-13] MEDS ORDERED: Pantoprazole 40 MG VIAL IVP SCH (06:30)
[2018-11-13 07:11] VITALS: BP 103/61
[2018-11-13] MEDS ORDERED: Haloperidol Lactate 5 MG/ML VIAL IVP PRN ×2 (11:10→12:22)
--- NOTE | 2018-11-13 11:17 | Palliative Progress Note ---
Date of Encounter: 11/13/18 Time of Encounter: 10:30 - Assessment and plan (1) Delirium Current Visit: Yes Status: Acute Assessment and plan: Likely terminal delirium. Patient on appropriate antibiotics for Sepsis, but mental status is worsening. Unable to tolerate PO. -haldol increased to 5mg q2hrs prn -Ativan 1 mg q4 hrs (2) Dyspnea Current Visit: Yes Status: Acute Assessment and plan: Patient is saturating ok on 6L oxymask, will switch to nc. Fentanyl 25mcg q4hrs in place, only one dose given yesterday. Qualifiers: Dyspnea type: acute respiratory distress Qualified Code(s): R06.03 - Acute respiratory distress (3) Goals of care, counseling/discussion Current Visit: Yes Status: Acute Assessment and plan: Met with patient's daughter Taylor, discussed current medical condition and worsening of delirium. She decided to transition to hospice and full comfort care only. ABX to be discontinued. Patient will transition to [facility] for symptom management. Patient is not expected to survive this admission, but If he stabilizzes then will discharge back to [facility]. Taylor is agreeable with plan, and she will inform her siblings. Hospice referral made, Primary hospitalist agrees. (4) Palliative care encounter Current Visit: Yes Status: Acute (5) UTI (urinary tract infection) Current Visit: Yes Status: Acute Assessment and plan: UCX and BCX growing ecoli. Patient on zosyn, urine is clear today. Patient's mental status continues to worsen, family elected for [facility] hospice transition and d/c of ABX. Qualifiers: Urinary tract infection type: site unspecified Hematuria presence: with hematuria Qualified Code(s): N39.0 - Urinary tract infection, site not specified; R31.9 - Hematuria, unspecified (6) Bladder outlet obstruction Current Visit: Yes Status: Acute Assessment and plan: suprapubic cath in place - Time Spent With Patient Total time spent is greater than 50% in coordination of care (as documented) at patient's floor/unit and/or counseling patient: Greater than 35 minutes - Subjective Interval history: Patient was calm when seen this morning, but after exam he became agitated, fighting to get out of bed, and asking for help. He received one dose of Ativan and was calm afterward. no family at the bedside. Patient was re-evaluated 1 hour later, now agitated again, stripping his clothes and asking to get out off bed. Daughter taylor at the bedside. Discussed with Taylor the concern for terminal delirium. Taylor stated that patient had never been so agitated, and that he continues to call people that several years ago. Haldol 5 mg given. - Constitutional Vitals: Abnormal lab results RBC 2.89 M/mcL (4.19-5.50) L 11/12/18 03:25 Hgb 9.0 g/dL (12.9-16.9) L D 11/12/18 03:25 Hct 28.9 % (37.5-50.1) L 11/12/18 03:25 MCHC 31.1 g/dL (31.6-35.5) L 11/12/18 03:25 RDW 15.6 % (11.5-14.5) H 11/12/18 03:25 Plt Count 122 K/mcL (140-400) L 11/12/18 03:25 10.3 K/mcL (1.6-8.9) H 11/12/18 03:25 0.3 K/mcL (0.6-4.6) L 11/12/18 03:25 PT 14.6 Seconds (9.4-12.1) H 11/12/18 03:25 APTT 25.7 Seconds (26.0-36.0) L 11/11/18 18:58 ABG pH 7.30 pH Units (7.32-7.45) L 11/12/18 05:18 ABG pCO2 49 mmHg (35-45) H 11/12/18 05:18 ABG pO2 69 mmHg (85-104) L 11/11/18 19:05 ABG O2 Saturation 94 % (95-98) L 11/11/18 19:05 Chloride 111 mEq/L (98-107) H 11/12/18 03:25 0.65 mg/dL (0.70-1.30) L 11/12/18 03:25 Glucose 131 mg/dL (70-105) H 11/12/18 03:25 POC Glucose 142 mg/dL (70-99) H 11/12/18 12:06 Lactic Acid 8.2 mmol/L (0.5-2.2) H* 11/11/18 18:58 Calcium 7.0 mg/dL (8.6-10.3) L 11/12/18 03:25 Venous Ioniz Calcium 1.04 mmol/L (1.15-1.35) L 11/12/18 03:55 B-Natriuretic Peptide 1158 pg/mL (Less than 100) H 11/12/18 03:25 5.3 g/dL (6.4-8.9) L 11/12/18 03:25 2.9 g/dL (3.5-5.7) L 11/12/18 03:25 Cloudy (Clear) A 11/11/18 20:52 30 mg/dL (Neg-Trace) H 11/11/18 20:52 Large (Negative) H 11/11/18 20:52 Positive (Negative) A 11/11/18 20:52 Ur Leukocyte Esterase Large (Negative) H 11/11/18 20:52 TNTC per hpf (0-3) H 11/11/18 20:52 TNTC per hpf (0-3) H 11/11/18 20:52 Many per hpf (None-Few) H 11/11/18 20:52 Ur Culture Indicated? YES (NO) A 11/11/18 20:52 Enterobacteriac sp PCR DETECTED (Not Detect) A 11/11/18 19:20 E. coli (PCR) DETECTED (Not Detect) A 11/11/18 19:20 Palliative Quality Palliative Quality: Screen for Code Status: Yes, Screen for Goals of Care: Yes, Screen for Pain: Yes, If Pain Regimen Started, Initiate Bowel Regimen: Yes, Screen for Nausea/Vomitting: NA Code Status: 11/12/18 01:22 CODE [Resuscitation Status: Active] [RES] Routine Comment: Resuscitation Status: DNR-Comfort Care - Labs CBC & Chem 7: 11/12/18 03:25 11/12/18 03:25 Labs: Laboratory Results - last 24 hr 11/11/18 11/12/18 20:52 12:06 POC Glucose 142 H Urine Color Yellow Urine Clarity Cloudy A Urine pH 6.5 Ur Specific [place] 1.012 Urine Protein 30 H Urine Glucose (UA) Normal Urine Ketones Negative Urine Blood Large H Urine Nitrite Positive A Urine Bilirubin Negative Urine Urobilinogen Normal Ur Leukocyte Esterase Large H Urine Microscopic RBC TNTC H Urine Microscopic WBC TNTC H Ur Squamous Epith Cells None Seen Urine Bacteria Many H Hyaline Casts None Seen Ur Culture Indicated? YES A - Impressions Impressions Chest CTA 11/11/18 22:07 IMPRESSION: 1. No evidence of a pulmonary embolism. 2. Suspected acute fractures involving the T4, T5, T7, T8, T10, and T11 vertebral bodies with associated areas of paraspinal hematoma. 3. Dense consolidations are noted in the lower lobes bilaterally with associated small pleural effusions. 4. Cholelithiasis. 5. Hiatal hernia. The orogastric tube terminates in the hiatal hernia, above the diaphragm. 6. Centrilobular and paraseptal emphysema with findings suggestive of pulmonary edema. 7. Marked atherosclerotic disease. D/ / 11/12/2018 07:09:59 Eldon Rodriguez MD / [facility] Interpreting Provider: Eldon Rodriguez MD - ABG Interpretation ABG results: ABG ABG pH 7.30 pH Units (7.32-7.45) L 11/12/18 05:18 ABG pCO2 49 mmHg (35-45) H 11/12/18 05:18 ABG pO2 85 mmHg (85-104) 11/12/18 05:18 ABG O2 Saturation 95 % (95-98) 11/12/18 05:18 PT/INR, D-dimer PT 14.6 Seconds (9.4-12.1) H 11/12/18 03:25 Palliative Scale - Palliative Performance Scale How ambulatory is this patient?: Mainly sit / lie What is patient's level of activity and evidence of disease?: Unable to do any work, Extensive disease How much self-care assistance does patient require?: Total care How much oral intake does the patient have?: Minimal to sips What is this patient's level of consciousness?: Full or drowsy with or without confusion Palliative Performance Score: 30 % Consult Discharge Plan - Plan Referrals: Huey Yi, [Primary Care Provider] -
--- NOTE | 2018-11-13 12:20 | Discharge Summary ---
Orders not resulted at time of discharge: Pending orders 11/11/18 19:13 EKG [ECG 12 lead ECG] [ECG] Stat 11/11/18 19:17 Culture,Blood [BC] Stat 11/11/18 20:52 Culture,Urine [RM] Stat 11/11/18 23:00 MRSA Surveillance Screen [MOLMIC] Stat Date of Encounter: 11/13/18 Time of Encounter: 12:17 - Discharge Diagnosis (1) Bacteremia Priority: Primary Status: Acute (2) Acute exacerbation of chronic obstructive airways disease Priority: Secondary Status: Acute (3) Acute respiratory failure with hypoxia Priority: Secondary Status: Acute (4) Bladder outlet obstruction Priority: Secondary Status: Acute (5) Congestive heart failure Priority: Secondary Status: Acute Qualifiers: Heart failure type: unspecified Heart failure chronicity: unspecified Qualified Code(s): I50.9 - Heart failure, unspecified (6) DVT prophylaxis Priority: Secondary Status: Acute (7) Delirium Priority: Secondary Status: Acute Hospital course: "Mr. Sampson is a 88 year old male with a history of COPD, Alzheimer dementia with behavioral disturbance, atrial fibrillation, hypertension, hyperlipidemia, prostate cancer, osteoporosis, and frequent falls currently [facility]. Patient presented to the ED via EMS for evaluation of shortness of breath. At the time of arrival, patient was noted to be in significant distress and severely tachypneic, with respiratory rate of 40-50 breaths per minute. Patient was also noted to be hypoxic with altered mental status, and was subsequently intubated while in the emergency department. Broad workup was initiated, and attempt was made for placement of Munoz catheter. Per ED documentation, placement of Munoz catheter was attempted by multiple prov iders; however, unsuccessful, even with use of a coude catheter. Urine was obtained via manual pressure over the bladder; urinalysis was suspicious for acute infection, with positive nitrates, large leukocyte esterase, and many bacteria noted. While in the ED, urology service was consulted for assistance with urinary drainage. Decision was made to proceed with placement of suprapubic catheter, wh ich was completed successfully; however, there was initially concern for potential bowel perforation, as initial material obtained was feculant- appearing. CT of the abdomen/pelvis was obtained, which demonstrated no pneumoperitoneum, though probable fecal impaction, cholelithiasis, and diverticulosis were noted. Patient was also noted to have high attenuation the bladder, likely asset protection representative of hemorrhage. Patient was administered broad- spectrum antimicrobial therapy with azithromycin, vancomycin, and Zosyn, as well as appropriate fluid resuscitation, after which he was admitted to the ICU for ongoing workup and management." She should not presented with above presentation and had above the ED and ICU orders. Urology was consulted and will catheter was placed. He was started on IV anti biotics. Pulmonology was consulted and CT angiogram of the chest showed dense consolidation in the bilateral lower lobe with sentry lobular emphysema. He was extubated on 11/12 and was placed on oxygen mask saturating 100%. He was started on IV steroids and DuoNeb's. For his Escherichia coli bacteremia he was started on Zosyn. Palliative care was consulted and his CODE STATUS was changed to DNR comfort care and family decided for him to move to inpatient hospice. He was discharged on 11/13 to inpatient hospice, medications as per palliative team. Discharge discussed with: patient, family, nurse - Time Spent with Patient Total time spent providing and/or coordinating discharge services: Time spent: Greater than 30 minutes (35) - Discharge Medications Prescriptions: New Albuterol Neb [Proventil Neb] 2.5 mg IH Q2H PRN inhsol PRN Reason: Shortness Of Breath/Wheezing Glycopyrrolate [Robinul] 0.2 mg IVP Q8H PRN vial PRN Reason: Secretions methylPREDNISolone [Solu-MEDROL] 40 mg IVP Q12H vial Continued Divalproex Sodium [Depakote] 250 mg PO BID Ipratropium/Albuterol Neb [Duoneb] 3 ml IH BID Multivitamin [One Daily Multivitamin] 1 each PO DAILY Ipratropium/Albuterol Neb [Duoneb] 3 ml IH TID PRN PRN Reason: Shortness Of Breath Famotidine [Heartburn Prevention] 20 mg PO HS Escitalopram [Lexapro] 20 mg PO DAILY Discontinued Tramadol HCl [Ultram] 50 mg PO TID Ropinirole HCl [Requip] 2 mg PO HS OLANZapine [Zyprexa] 10 mg PO HS Melatonin 5 mg PO HS Nitrofurantoin [Macrodantin] 50 mg PO DAILY Trazodone HCl 100 mg PO HS Home Medications: Divalproex Sodium [Depakote] 250 mg PO BID 11/11/18 [History] Escitalopram [Lexapro] 20 mg PO DAILY 11/11/18 [History] Famotidine [Heartburn Prevention] 20 mg PO HS 11/11/18 [History] Ipratropium/Albuterol Neb [Duoneb] 3 ml IH BID 11/11/18 [History] Ipratropium/Albuterol Neb [Duoneb] 3 ml IH TID PRN 11/11/18 [History] Multivitamin [One Daily Multivitamin] 1 each PO DAILY 11/11/18 [History] Albuterol Neb [Proventil Neb] 2.5 mg IH Q2H PRN inhsol 11/13/18 [Rx] Glycopyrrolate [Robinul] 0.2 mg IVP Q8H PRN vial 11/13/18 [Rx] methylPREDNISolone [Solu-MEDROL] 40 mg IVP Q12H vial 11/13/18 [Rx] Allergies/Adverse Reactions: Allergy/AdvReac Type Severity Reaction Status Date / Time No Known Allergies Allergy Verified 11/11/18 19:40 Date of admission: 11/11/18 23:44 Primary care physician: Huey Yi Consults: 11/12/18 02:30 Consult to Critical Care [CONS] Routine Consulting Provider: Pulm Crit Care & Sleep Abbie Reason for Consult: acute respiratory failure s/p intubation Time Notified: 02:31 Call Completed: No Consult to Palliative Care [CONS] Routine Comment: Consulting Provider: Palliative Care Abbie Reason for Consult: DNR-CC; presented with acute hypoxic respiratory failure and was intubated in the ED. Family would benefit from palliative care support and assistance with comfort-oriented care decisions. Time Notified: 02:31 Call Completed: No 11/12/18 02:37 Consult to Urology [CONS] Routine Consulting Provider: Urology [place] Reason for Consult: Urosepsis with bladder outlet obstruction Call Completed: Yes - Constitutional Vitals: Temp Pulse Resp BP Pulse Ox 98.4 F 101 14 103/61 92 11/13/18 07:10 11/13/18 07:10 11/13/18 07:47 11/13/18 07:10 11/13/18 07:47 Exam: GENERAL: Cachectic and ill-appearing elderly male, sleeping with oxymask, responds to painful stimuli HEENT: Atraumatic and normocephalic. CARDIOVASCULAR: Irregular rate and rhythm. S1 and S2 present. RESPIRATORY: Coarse breath sounds bilaterally. Chest rises and falls symmetrically. GASTROINTESTINAL: Bowel sounds present 4 quadrants. Abdomen is soft, nontender, nondistended. Suprapubic catheter in place. EXTREMITIES: thin, loss of bulk SKIN: Warm, dry, and intact NEUROLOGIC: withdraws to pain, Axox), not following commands, drowsy PSYCHIATRIC: Unable to assess secondary to sedation. - Patient Status Disposition: Hospice - Medical Facility Condition: Serious Functional capacity at discharge: bed bound Overall status at discharge: other - Discharge Instructions Follow Up With: Huey Yi DO [Primary Care Provider] - - Diet and Activity Activity: other Diet: other
== END 2018-11-13 13:04 | disposition hospice, inpatient (51) | DRG 871 ==
LOC: EMEROOARM 18:48 → ICNU 23:44 → 2ANU 11-12 15:11
PROVIDERS: ADMIT Internal Medicine; ATTEND Internal Medicine

== ENCOUNTER 2018-11-13 12:14 | Inpatient (IN) ==
[2018-11-13] MEDS: Haloperidol Lactate 5 MG/ML VIAL IVP PRN ×5 (15:26→21:33)
[2018-11-13] MEDS: *HR* LORazepam 2 MG/ML VIAL IVP PRN ×3 (17:13→23:01)
[2018-11-13] MEDS: *HR* FentaNYL (PF) 100 MCG/2 ML VIAL IVP PRN ×3 (18:41→23:01)
[2018-11-14] MEDS: *HR* FentaNYL (PF) 100 MCG/2 ML VIAL IVP PRN ×5 (01:33→09:56)
[2018-11-14] MEDS: Haloperidol Lactate 5 MG/ML VIAL IVP PRN ×5 (01:33→23:36)
[2018-11-14] MEDS: *HR* LORazepam 2 MG/ML VIAL IVP PRN ×5 (04:05→21:30)
[2018-11-14] MEDS: FentaNYL (PF) 1,000 MCG in 0.9 % Sodium Chloride 80 ML IVC SCH (11:29)
--- NOTE | 2018-11-14 11:38 | Pallative History & Physical ---
Date of Encounter: 11/14/18 Time of Encounter: 10:30 Assessment and Plan (1) Delirium Current visit: Yes Status: Acute Patient with (2) Dyspnea Current visit: Yes Status: Acute Qualifiers: Dyspnea type: acute respiratory distress Qualified Code(s): R06.03 - Acute respiratory distress (3) Goals of care, counseling/discussion Current visit: No Status: Acute Internal Medicine - H&P: HPI Admitted From: Hospital to Hospital Transfer Plans for Post Hospital Care: at Medical Facility History of present illness: Mr. Sampson is a 88 year old male with a history of COPD, Alzheimer dementia with behavioral disturbance, atrial fibrillation, hypertension, hyperlipidemia, prostate cancer, osteoporosis, and frequent falls currently residing in a care home facility. Patient presented to the ED via EMS for evaluation of shortness of breath. At the time of arrival, patient was noted to be in significant distress and severely tachypneic, with respiratory rate of 40-50 breaths per minute. Patient was also noted to be hypoxic with altered mental status, and was subsequently intubated while in the emergency department. Broad workup was initiated, and attempt was made for placement of Munoz catheter. Per ED documentation, placement of Munoz catheter was attempted by multiple providers; however, unsuccessful, even with use of a coude catheter. Urine was obtained via manual pressure over the bladder; urinalysis was suspicious for acute infection, with positive nitrates, large leukocyte esterase, and many bacteria noted. Patient with continued decline in function or improvement from septic UTI. Family discussions related to GOC and transition to inpatient hospice care as patient has overall poor prognosis. Past Med Surg Social Fam HX - Past Medical History Medical history: COPD, dementia, other (Prostate cancer) Psychiatric history: anxiety, depression - Past Surgical History Surgical History: appendectomy Additional surgical history: back surgery - Social History Smoking Status: Former smoker Smokeless Tobacco Status: No Alcohol use: none Drug use: none Internal Medicine - H&P: Meds Divalproex Sodium [Depakote] 250 mg PO BID 11/11/18 [History] Escitalopram [Lexapro] 20 mg PO QAM 11/11/18 [History] Famotidine [Heartburn Prevention] 20 mg PO HS 11/11/18 [History] Albuterol Neb [Proventil Neb] 2.5 mg IH Q2H PRN inhsol 11/13/18 [Rx] Cranberry Fruit [Cranberry] 450 mg PO QAM 11/13/18 [History] Glycopyrrolate [Robinul] 0.2 mg IVP Q8H PRN vial 11/13/18 [Rx] Ipratropium/Albuterol Sulfate [Iprat-Albut 0.5-3(2.5) mg/3 ml] 3 ml IH BID 11/13/18 [History] Ipratropium/Albuterol Sulfate [Iprat-Albut 0.5-3(2.5) mg/3 ml] 3 ml IH TID PRN 11/13/18 [History] Melatonin 5 mg PO HS 11/13/18 [History] Multivit-Min/Iron Fum/Folic AC [Lvxfy-Gnmimtc-Owuoerdd Tablet] 1 tab PO QAM 11/13/18 [History] Nitrofurantoin [Macrodantin] 50 mg PO DAILY 11/13/18 [History] OLANZapine [Zyprexa] 10 mg PO HS 11/13/18 [History] Ropinirole HCl [Requip] 2 mg PO HS 11/13/18 [History] Tramadol HCl [Ultram] 50 mg PO TID 11/13/18 [History] Trazodone HCl 100 mg PO HS 11/13/18 [History] methylPREDNISolone [Solu-MEDROL] 40 mg IVP Q12H vial 11/13/18 [Rx] Allergy/AdvReac Type Severity Reaction Status Date / Time No Known Allergies Allergy Verified 11/11/18 19:40 ROS unobtainable: due to mental status (Patient with dementia) - Constitutional Constitutional ROS PAL: as per HPI - EENT Eyes: requires corrective lenses Ears: decreased hearing - Respiratory Respiratory: dyspnea on exertion - Musculoskeletal Musculoskeletal ROS IM: muscle weakness - Neurological Neurological ROS: weakness Palliative Care-Exam - Constitutional Vitals: Temp Pulse Resp BP Pulse Ox 97.9 F 89 12 130/69 99 11/14/18 03:32 11/14/18 03:32 11/14/18 03:32 11/14/18 03:32 11/14/18 03:32 General appearance: Present: mild distress - Head Head Exam: Present: atraumatic, normal inspection - Eye Eye exam: Present: PERRL - Expanded ENT Exam Mouth Exam: Present: moist - Respiratory Respiratory exam: Present: decreased breath sounds - Expanded Respiratory Exam Location: decreased breath sounds: Left, Right, Lower, rhonchi: Left - Cardiovascular Cardiovascular exam: Present: +S1, +S2 - Expanded Cardiovascular Exam Peripheral pulses: 1+: Femoral (L) PM, Femoral (R) PM, Posterior Tibialis (L), Posterior Tibialis (R), Dorsalis Pedis (L) PM, Dorsalis Pedis (R) PM, 2+: Carotid (L) PM, Carotid (R) PM, Radial (L), Radial (R) - GI/Abdominal Exam GI/Abdominal exam: Present: soft - Catheter Type: Urethral (Munoz) Additional comments: Dark brown urine - Expanded Lower Extremities Exam Upper Leg exam: Present: full ROM Lower Leg exam: Present: full ROM - Neurological Exam Neurological exam: Present: altered - Expanded Neurological Exam Coma Scale Eye Opening: To Pain Coma Scale Motor Response: Withdraws to Pain Coma Scale Verbal Response: Incomprehensible Coma Scale Total: 8 - Psychiatric Psychiatric exam: Present: agitated - Skin Skin exam: Present: pallor, warm Palliative Quality Palliative Quality: Screen for Code Status: Yes, Screen for Goals of Care: No, Screen for Pain: Yes, If Pain Regimen Started, Initiate Bowel Regimen: Yes, Screen for Nausea/Vomitting: Yes Code Status: 11/13/18 14:50 Resuscitation Status: Active [RES] Routine Comment: Resuscitation Status: DNR-Comfort Care
[2018-11-14] MEDS ORDERED: Bisacodyl 10 MG RECTAL SUPPOSITORY RC PRN (14:05)
[2018-11-15] MEDS: FentaNYL (PF) 1,000 MCG in 0.9 % Sodium Chloride 80 ML IVC SCH (04:25)
[2018-11-15] MEDS: Haloperidol Lactate 5 MG/ML VIAL IVP PRN (07:58)
[2018-11-15] MEDS: Atropine Sulfate 1% 40 DROP/2 ML BOTTLE SL PRN ×2 (08:02→10:27)
[2018-11-15] MEDS: *HR* LORazepam 2 MG/ML VIAL IVP PRN ×2 (08:43→10:27)
--- NOTE | 2018-11-15 10:38 | Palliative Progress Note ---
Date of Encounter: 11/15/18 Time of Encounter: 09:30 - Assessment and plan (1) Goals of care, counseling/discussion Current Visit: No Status: Acute (2) Dyspnea Current Visit: Yes Status: Acute Assessment and plan: On fentanyl drip, now 100mcg/hour, will not titrate higher as pt has bradypnea. Qualifiers: Dyspnea type: acute respiratory distress Qualified Code(s): R06.03 - Acute respiratory distress (3) Delirium Current Visit: Yes Status: Acute Assessment and plan: Haldol 5 mg q1h Ativan 2 mg q2h will continue with medication adjustment as needed - Time Spent With Patient Total time spent is greater than 50% in coordination of care (as documented) at patient's floor/unit and/or counseling patient: 25 - 35 minutes - Subjective Interval history: Patient today is having a Sheyene-Strokes breathing, with long pauses, but becomes very agitated at times. Phentanyl drip is at 100mcg/min. Patient received Ativan and haldol, with little improvement. Will increase ativan to 4mg q2h. Family gathering at the bedside. - Constitutional Exam: General appearance: in moderate distress Eyes: nonicteric ENT: oropharynx moist Neck: supple, no lymphadenopathy Lungs: bradypnea, shallow breathing, reduced breath sounds in lungs bases Cardiovascular: S1,S2, no M/R/G Gastrointestinal: soft, non-tender, non-distended. supra-pubic [place] in place, draining bloody urine. Extremities: no cyanosis, no edema, pulses normal Musculoskeletal: no deformities Palliative Quality Palliative Quality: Screen for Code Status: Yes, Screen for Goals of Care: No, Screen for Pain: Yes, If Pain Regimen Started, Initiate Bowel Regimen: Yes, Screen for Nausea/Vomitting: Yes Code Status: 11/13/18 14:50 Resuscitation Status: Active [RES] Routine Comment: Resuscitation Status: DNR-Comfort Care Palliative Scale - Palliative Performance Scale How ambulatory is this patient?: Totally bed bound What is patient's level of activity and evidence of disease?: Unable to do most activity, Extensive disease How much self-care assistance does patient require?: Total care How much oral intake does the patient have?: Mouth care only What is this patient's level of consciousness?: Drowsy or coma with or without confusion Palliative Performance Score: 10 % Consult Discharge Plan - Plan Referrals: NONE,PCP [Primary Care Provider] -
[2018-11-16] MEDS: Atropine Sulfate 1% 40 DROP/2 ML BOTTLE SL PRN ×10 (01:02→22:37)
[2018-11-16] MEDS: FentaNYL (PF) 1,000 MCG in 0.9 % Sodium Chloride 80 ML IVC SCH ×2 (03:32→13:40)
[2018-11-16] MEDS ORDERED: Scopolamine Patch 1.5 MG PATCH.TD72 TD SCH (11:45)
--- NOTE | 2018-11-16 14:13 | Palliative Progress Note ---
Date of Encounter: 11/16/18 Time of Encounter: 11:30 - Assessment and plan (1) Goals of care, counseling/discussion Current Visit: No Status: Acute Assessment and plan: Family at the bedside, aare that patient is actively dying. Emotional support provided. (2) Dyspnea Current Visit: Yes Status: Acute Assessment and plan: On fentanyl drip, now 100mcg/hour, will not titrate higher as pt has bradypnea. Qualifiers: Dyspnea type: acute respiratory distress Qualified Code(s): R06.03 - Acute respiratory distress (3) Delirium Current Visit: Yes Status: Acute Assessment and plan: Haldol 5 mg q1h Ativan 2 mg q2h will continue with medication adjustment as needed - Time Spent With Patient Total time spent is greater than 50% in coordination of care (as documented) at patient's floor/unit and/or counseling patient: 25 - 35 minutes - Subjective Interval history: Patient continues having a Sheyene-Strokes breathing, with long pauses, more comfortable today. Phentanyl drip is at 100mcg/min. Patient received Ativan and haldol. Continues to have gurgling secretions, will add scopolamine patch. Family at the bedside. - Constitutional Exam: General appearance: comfortable Eyes: nonicteric ENT: oropharynx moist Neck: supple, no lymphadenopathy Lungs: bradypnea, shallow breathing, reduced breath sounds in lungs bases Cardiovascular: S1,S2, no M/R/G Gastrointestinal: soft, non-tender, non-distended. supra-pubic [place] in place, draining bloody urine. Extremities: no cyanosis, no edema, pulses normal Musculoskeletal: no deformities Palliative Quality Palliative Quality: Screen for Code Status: Yes, Screen for Goals of Care: No, Screen for Pain: Yes, If Pain Regimen Started, Initiate Bowel Regimen: Yes, Screen for Nausea/Vomitting: Yes Code Status: 11/13/18 14:50 Resuscitation Status: Active [RES] Routine Comment: Resuscitation Status: DNR-Comfort Care Palliative Scale - Palliative Performance Scale How ambulatory is this patient?: Totally bed bound What is patient's level of activity and evidence of disease?: Unable to do most activity, Extensive disease How much self-care assistance does patient require?: Total care How much oral intake does the patient have?: Mouth care only What is this patient's level of consciousness?: Drowsy or coma with or without confusion Palliative Performance Score: 10 % Consult Discharge Plan - Plan Referrals: NONE,PCP [Primary Care Provider] -
[2018-11-17] MEDS: FentaNYL (PF) 1,000 MCG in 0.9 % Sodium Chloride 80 ML IVC SCH ×3 (00:16→21:09)
[2018-11-17] MEDS: Atropine Sulfate 1% 40 DROP/2 ML BOTTLE SL PRN ×3 (07:30→21:53)
--- NOTE | 2018-11-17 12:40 | Palliative Progress Note ---
Date of Encounter: 11/17/18 Time of Encounter: 11:00 - Assessment and plan (1) Goals of care, counseling/discussion Current Visit: No Status: Acute Assessment and plan: Family at the bedside, aare that patient is actively dying. Emotional support provided. (2) Dyspnea Current Visit: Yes Status: Acute Assessment and plan: On fentanyl drip, now 100mcg/hour, less bradypnea today. PRN doses added. Qualifiers: Dyspnea type: acute respiratory distress Qualified Code(s): R06.03 - Acute respiratory distress (3) Delirium Current Visit: Yes Status: Acute Assessment and plan: Haldol 5 mg q1h Ativan 2 mg q2h will continue with medication adjustment as needed - Time Spent With Patient Total time spent is greater than 50% in coordination of care (as documented) at patient's floor/unit and/or counseling patient: less than 15 minutes - Subjective Interval history: Patient continues having a Sheyene-Strokes breathing, with long pauses, more comfortable today. Phentanyl drip is at 100mcg/min. Patient received Ativan and haldol. Continues to have gurgling secretions, scopolamine patch in place. Family at the bedside. - Constitutional Exam: General appearance: comfortable Eyes: nonicteric ENT: oropharynx dry Neck: supple, no lymphadenopathy Lungs: bradypnea, shallow breathing, reduced breath sounds in lungs bases Cardiovascular: S1,S2, no M/R/G Gastrointestinal: soft, non-tender, non-distended. supra-pubic [place] in place, draining bloody urine. Extremities: no cyanosis, no edema, pulses normal Musculoskeletal: no deformities Palliative Quality Palliative Quality: Screen for Code Status: Yes, Screen for Goals of Care: No, Screen for Pain: Yes, If Pain Regimen Started, Initiate Bowel Regimen: Yes, Screen for Nausea/Vomitting: Yes Code Status: 11/13/18 14:50 Resuscitation Status: Active [RES] Routine Comment: Resuscitation Status: DNR-Comfort Care Palliative Scale - Palliative Performance Scale How ambulatory is this patient?: Totally bed bound What is patient's level of activity and evidence of disease?: Unable to do most activity, Extensive disease How much self-care assistance does patient require?: Total care How much oral intake does the patient have?: Mouth care only What is this patient's level of consciousness?: Drowsy or coma with or without confusion Palliative Performance Score: 10 % Consult Discharge Plan - Plan Referrals: NONE,PCP [Primary Care Provider] -
[2018-11-17] MEDS ORDERED: *HR* FentaNYL (PF) 100 MCG/2 ML VIAL IVP PRN (12:45)
[2018-11-18] MEDS: FentaNYL (PF) 1,000 MCG in 0.9 % Sodium Chloride 80 ML IVC SCH (08:14)
[2018-11-18] MEDS ORDERED: FentaNYL (PF) 1,000 MCG in 0.9 % Sodium Chloride 80 ML IVC SCH (09:57)
--- NOTE | 2018-11-18 10:03 | Palliative Progress Note ---
Date of Encounter: 11/18/18 Time of Encounter: 10:01 - Assessment and plan (1) Goals of care, counseling/discussion Current Visit: No Status: Acute Assessment and plan: Family at the bedside, aware that patient is actively dying. Emotional support provided. Patient continues to require GIP admission for symptom control with continuous IV medications. (2) Dyspnea Current Visit: Yes Status: Acute Assessment and plan: On fentanyl drip, now 100mcg/hour, uncomfortable while taking breaths. Max on Fentanyl drip to 200mcg, nurse instructed to titrate gradually to comfort. PRN doses added. Qualifiers: Dyspnea type: acute respiratory distress Qualified Code(s): R06.03 - Acute respiratory distress (3) Delirium Current Visit: Yes Status: Acute Assessment and plan: Haldol 5 mg q1h Ativan 2 mg q2h will continue with medication adjustment as needed - Time Spent With Patient Total time spent is greater than 50% in coordination of care (as documented) at patient's floor/unit and/or counseling patient: less than 15 minutes - Subjective Interval history: No changes, Patient continues having a Sheyene-Strokes breathing, with long pauses, but appears to be increasing rate and uncomfortable during breaths. Pulse is increased, as well as BP. Phentanyl drip is at 100mcg/min, will increase max to 200mcg to allow titration. Continues to have gurgling secretions, scopolamine patch in place. Oxygen was removed per family request. Family at the bedside. - Constitutional Exam: General appearance: comfortable Eyes: nonicteric ENT: oropharynx dry Neck: supple, no lymphadenopathy Lungs: bradypnea, shallow breathing, reduced breath sounds in lungs bases Cardiovascular: S1,S2, no M/R/G Gastrointestinal: soft, non-tender, non-distended. supra-pubic [place] in place, draining bloody urine. Extremities: no cyanosis, no edema, pulses normal Musculoskeletal: no deformities Palliative Quality Palliative Quality: Screen for Code Status: Yes, Screen for Goals of Care: No, Screen for Pain: Yes, If Pain Regimen Started, Initiate Bowel Regimen: Yes, Screen for Nausea/Vomitting: Yes Code Status: 11/13/18 14:50 Resuscitation Status: Active [RES] Routine Comment: Resuscitation Status: DNR-Comfort Care Palliative Scale - Palliative Performance Scale How ambulatory is this patient?: Totally bed bound What is patient's level of activity and evidence of disease?: Unable to do most activity, Extensive disease How much self-care assistance does patient require?: Total care How much oral intake does the patient have?: Mouth care only What is this patient's level of consciousness?: Drowsy or coma with or without confusion Palliative Performance Score: 10 % Consult Discharge Plan - Plan Referrals: NONE,PCP [Primary Care Provider] -
[2018-11-18] MEDS: *HR* LORazepam 2 MG/ML VIAL IVP PRN (15:26)
[2018-11-18] MEDS ORDERED: Haloperidol Oral Conc 10 MG/5 ML UDC PO PRN (15:54)
[2018-11-18] MEDS: MORPHINE SUL Oral CONC 10 MG/0.5 ML ORAL.SYG SL PRN ×3 (16:00→21:49)
[2018-11-18] MEDS: *HR* LORazepam Oral Conc 2 MG/ML SL PRN ×2 (17:29→22:45)
[2018-11-18 19:59] VITALS: BP 111/70
[2018-11-19] MEDS: Atropine Sulfate 1% 40 DROP/2 ML BOTTLE SL PRN (00:36)
[2018-11-19] MEDS: MORPHINE SUL Oral CONC 10 MG/0.5 ML ORAL.SYG SL PRN ×2 (00:46→03:58)
[2018-11-19] MEDS: *HR* LORazepam Oral Conc 2 MG/ML SL PRN (02:43)
== END 2018-11-19 06:11 | disposition expired | DRG 951 ==
LOC: 2ANU 13:06
PROVIDERS: ADMIT Internal Medicine Hospice and Palliative Medicine; ATTEND Internal Medicine Hospice and Palliative Medicine